=== PATIENT | female | born 1970 | race Caucasian/White ===

== ENCOUNTER 2019-10-25 08:40 | Outpatient (RCR) | payer SELFPAY | END 2019-11-03 23:59 | disposition home or self-care (01) | LOC: MPT 08:40 | PROVIDERS: Family Provider Family Medicine; PCP Family Medicine; Referring Provider Nurse Practitioner; Visit Provider Nurse Practitioner | DX: M25.552 Pain in left hip (principal) | CPT/HCPCS: 97110; 97140; 97161 ==

== ENCOUNTER 2019-10-26 11:07 | Outpatient (CLI) | payer SELFPAY ==
--- NOTE | 2019-10-26 11:58 | CT_ITS ---
WS: [id number] CT LEFT HIP WITHOUT CONTRAST. HISTORY: PAIN IN LEFT HIP Technique: All CT scans at [facility] use at least one of these dose optimization techniq ues: automated exposure control; mA and/or kV adjustment per patient size (includes targeted exams wh ere dose is matched to clinical indication); or iterative reconstruction. DLP: 757.1 mGycm COMPARISON: 10/26/2019 and MRI. No fracture or dislocation. Very minimal narrowing and sclerosis involving the LEFT hip joint. Mild c ortical irregularity involving the superior femoral head and the adjacent acetabulum. No destructive bone lesions. No soft tissue atrophy. No adjacent adenopathy. CT/CT hip LT wo con* [id number] IMPRESSION: Mild LEFT hip joint osteoarthritis.
== END 2019-10-26 11:08 | disposition home or self-care (01) ==
LOC: RADSHAW 11:13 → RADWPI 11:37
PROVIDERS: Family Provider Family Medicine; PCP Nurse Practitioner; Visit Provider Nurse Practitioner
DX: M16.12 Unilateral primary osteoarthritis, left hip (principal)
CPT/HCPCS: 73700

== ENCOUNTER 2019-11-04 06:00 | Outpatient (RCR) | payer SELFPAY | END 2019-12-04 23:59 | disposition home or self-care (01) | LOC: MPT 06:00 | PROVIDERS: PCP Nurse Practitioner; Referring Provider Nurse Practitioner; Visit Provider Nurse Practitioner | DX: M25.552 Pain in left hip (principal) | CPT/HCPCS: 97110; 97140 ==

== ENCOUNTER → 2019-11-29 13:20 | Outpatient (BNVA) | payer SELFPAY | PROVIDERS: Referring Provider Nurse Practitioner; Visit Provider Orthopaedic Surgery | DX: M25.552 Pain in left hip (principal) | CPT/HCPCS: 73502 ==

== ENCOUNTER 2019-12-15 13:06 | Outpatient (CLI) | payer SELFPAY ==
--- NOTE | 2019-12-15 13:30 | USCV_ITS ---
Paula Goodwin Age: 49 Gender: F : 1970 Exam Date: 12/15/2019 13:11 Ordering Phys: Sade Levy MD ([email or web address]) Technologist: Leyla Michaels Exam Location: [facility] [place] Indication: ICD CHF BP: / HR: 82 Rhythm: Sinus Technical Quality: Adequate MEASUREMENTS (Male / Female) Normal Values 2D ECHO LV Diastolic Diameter PLAX 4.4 cm 4.2 - 5.9 / 3.9 - 5.3 cm LV Systolic Diameter PLAX 2.9 cm IVS Diastolic Thickness 0.9 cm 0.6 - 1.0 / 0.6 - 0.9 cm IVS Systolic Thickness 1.6 cm LVPW Diastolic Thickness 1.1 cm 0.6 - 1.0 / 0.6 - 0.9 cm LVPW Systolic Thickness 1.2 cm LVOT Diameter 2.0 cm LV Ejection Fraction 2D Teich 64.1 % LA Diameter 3.0 cm LA Width 2.5 cm LA Height 4.6 cm RA Width 3.6 cm RA Height 3.7 cm Aorta at Sinotubular Diameter 3.0 cm M-MODE LV Diastolic Diameter MM 4.8 cm 4.2 - 5.9 / 3.9 - 5.3 cm LV Systolic Diameter MM 3.1 cm LV Ejection Fraction MM Teich 65.3 % IVS Diastolic Thickness MM 0.8 cm 0.6 - 1.0 / 0.6 - 0.9 cm IVS Systolic Thickness MM 1.3 cm LVPW Diastolic Thickness MM 1.1 cm 0.6 - 1.0 / 0.6 - 0.9 cm LVPW Systolic Thickness MM 1.6 cm RV Diastolic Diameter MM 0.9 cm Aortic Annulus Diameter 3.1 cm LA Ao Ratio MM 1.0 MV E Point Septal Separation 1.3 cm DOPPLER AV Peak Velocity 112.0 cm/s LVOT Peak Velocity 89.0 cm/s AV Area Cont Eq vti 2.1 cm squared AV Area Cont Eq pk 2.6 cm squared MV Area PHT 4.3 cm squared Mitral E to A Ratio 1.1 MV E' Velocity 10.0 cm/s Mitral E to MV E' Ratio 10.5 Mitral E to LV E' Lateral Ratio 10.2 Mitral E to LV E' Septal Ratio 11.0 TR Peak Velocity 225.0 cm/s TR Peak Gradient 20.2 mmHg TR Mean Velocity 174.2 cm/s TR Mean Gradient 13.0 mmHg TR Velocity Time Integral 73.3 cm PV Peak Velocity 66.0 cm/s RV Acceleration Time 0.2 s RV Ejection Time 0.4 s RV AcT/ET 0.5 FINDINGS Left Ventricle Normal left ventricular cavity size. Mildly decreased left ventricular systolic function. Left ventricular ejection fraction is estimated at 40- 45 %. Mild global hypokinesis. Abnormal septal motion consistent with conduction abnormality. Normal diastolic function. Right Ventricle Normal right ventricular size and systolic function. Right ventricular systolic pressure 23 mmHg. ICD wire visualized in right ventricle. Right Atrium Normal right atrial size. Right atrial pressure estimated at 3 mmHg. Left Atrium Normal left atrial size. Mitral Valve Structurally normal mitral valve. No mitral valve stenosis. Mild mitral valve regurgitation. Aortic Valve Aortic valve not well visualized. No aortic valve stenosis. Trace aortic valve regurgitation. Tricuspid Valve Tricuspid valve not well visualized. Trace tricuspid valve regurgitation. Pulmonic Valve Pulmonic valve not well visualized. Pericardium No pericardial effusion. Normal-sized inferior vena cava. Aorta Normal size aortic root and proximal ascending aorta. CONCLUSIONS 1. Normal left ventricular cavity size. Mildly decreased left ventricular systolic function. Left ventricular ejection fraction is estimated at 40- 45 %. Mild global hypokinesis. Normal diastolic function. 2. Normal right ventricular size and systolic function. 3. Right atrial pressure estimated at 3 mmHg. 4. Mild mitral valve regurgitation. 5. No prior similar studies to compare. Sade Levy MD (Electronically Signed) Final Date: 18 December 2019 12:18 S
== END 2019-12-15 13:07 | disposition home or self-care (01) ==
LOC: RAD 13:11
PROVIDERS: PCP Nurse Practitioner; Visit Provider Internal Medicine Cardiovascular Disease
DX: I50.9 Heart failure, unspecified (principal); I34.0 Nonrheumatic mitral (valve) insufficiency
CPT/HCPCS: 93306

== ENCOUNTER → 2019-12-29 16:12 | Outpatient (BNVA) | payer SELFPAY | PROVIDERS: PCP Nurse Practitioner; Visit Provider Internal Medicine Cardiovascular Disease | DX: Z45.02 Encounter for adjustment and management of automatic implantable cardiac defibrillator (principal); I13.0 Hypertensive heart and chronic kidney disease with heart failure and stage 1 through stage 4 chronic kidney disease, or unspecified chronic kidney disease; I50.43 Acute on chronic combined systolic (congestive) and diastolic (congestive) heart failure; N18.3 Chronic kidney disease, stage 3 (moderate); E11.22 Type 2 diabetes mellitus with diabetic chronic kidney disease; I44.7 Left bundle-branch block, unspecified | CPT/HCPCS: 80053; 83735; 83880; 84443 ==

== ENCOUNTER → 2020-03-02 13:33 | Outpatient (BNVA) | payer SELFPAY | PROVIDERS: PCP Nurse Practitioner; Referring Provider Physician Assistant Medical; Visit Provider Internal Medicine | DX: E10.40 Type 1 diabetes mellitus with diabetic neuropathy, unspecified (principal); Z79.4 Long term (current) use of insulin; E10.22 Type 1 diabetes mellitus with diabetic chronic kidney disease; N18.3 Chronic kidney disease, stage 3 (moderate); I10 Essential (primary) hypertension; E78.5 Hyperlipidemia, unspecified | CPT/HCPCS: 99204 ==

== ENCOUNTER → 2020-04-02 10:43 | Outpatient (BNVA) | payer SELFPAY | PROVIDERS: PCP Nurse Practitioner; Visit Provider Internal Medicine | DX: E10.22 Type 1 diabetes mellitus with diabetic chronic kidney disease (principal); N18.3 Chronic kidney disease, stage 3 (moderate); E10.42 Type 1 diabetes mellitus with diabetic polyneuropathy; Z79.4 Long term (current) use of insulin; E10.59 Type 1 diabetes mellitus with other circulatory complications; I10 Essential (primary) hypertension; E78.5 Hyperlipidemia, unspecified | CPT/HCPCS: 99214 ==

== ENCOUNTER → 2021-02-15 10:22 | Outpatient (BNVA) | payer MEDICAID, SELFPAY | PROVIDERS: PCP Physician Assistant Medical; Visit Provider Internal Medicine Cardiovascular Disease | DX: Z45.02 Encounter for adjustment and management of automatic implantable cardiac defibrillator (principal); R06.00 Dyspnea, unspecified; E78.5 Hyperlipidemia, unspecified; I13.0 Hypertensive heart and chronic kidney disease with heart failure and stage 1 through stage 4 chronic kidney disease, or unspecified chronic kidney disease; E10.69 Type 1 diabetes mellitus with other specified complication; I50.43 Acute on chronic combined systolic (congestive) and diastolic (congestive) heart failure; I44.7 Left bundle-branch block, unspecified; F17.210 Nicotine dependence, cigarettes, uncomplicated; N18.30 Chronic kidney disease, stage 3 unspecified | CPT/HCPCS: 80048; 82306; 83735; 83880; 84443 ==

== ENCOUNTER 2021-04-24 07:44 | Outpatient (CLI) | payer MEDICAID, SELFPAY ==
--- NOTE | 2021-04-24 08:12 | CT_ITS ---
WS: [id number] CT LUMBAR SPINE, noncontrast. HISTORY: VERTEBROGENIC LOW BACK PAIN TECHNIQUE: Contiguous 2.5 mm axial imaging are performed. Sagittal and coronal reformats are submitte d and reviewed. All CT scans at [facility] use at least one of these dose optimization techni ques: automated exposure control; mA and/or kV adjustment per patient size (includes targeted exams w here dose is matched to clinical indication); or iterative reconstruction. IV contrast: None DLP: 1940.34 mGycm COMPARISON: None available. Normal lumbar alignment. No fractures or disc space narrowing. There are small endplate hypertrophic osteophytes. L1-2: Normal. L2-3: Mild diffuse annular disc bulging with no stenosis. L3-4: Very mild annular disc bulging with no stenosis. L4-5: Mild annular disc bulging with mild ligamentum flavum and facet arthritis. Mild encroachment in to the foramina bilaterally. Mild bilateral foraminal stenosis and mild facet joint arthritis. L5-S1: Mild annular disc bulge with a very shallow central disc protrusion. Very minimal bilateral fo raminal narrowing. Mild scattered plaque within the aorta. CT/CT lumbar spine wo con* [id number] IMPRESSION: 1. No acute fractures or significant stenosis. 2. Mild bilateral foraminal stenosis at L4-5 and L5-S1 due to mild degenerativ e disc and facet arthritis.
--- NOTE | 2021-04-24 08:12 | XR_ITS ---
WS: [id number] LATERAL LUMBAR SPINE: 3 view. Lateral radiographs are performed in upright neutral, flexion and extension to the patient's toleranc e. HISTORY: Back pain. COMPARISON: None available. Mild increase in the lumbar lordosis. Posterior alignment is normal. With flexion and extension no in stability. Moderate facet joint arthritis with sclerosis and narrowing at L4-5 and L5-S1. No fractures. Mild atherosclerosis within the visualized aorta. XR/XR lumbar spine f/e only [id number] IMPRESSION: 1. No lumbar spine instability or fracture. 2. Moderate facet joint arthritis at L4-5 and L5-S1.
== END 2021-04-24 07:45 | disposition home or self-care (01) ==
PROVIDERS: PCP Physician Assistant Medical; Visit Provider Nurse Practitioner
DX: M54.41 Lumbago with sciatica, right side (principal); M47.816 Spondylosis without myelopathy or radiculopathy, lumbar region; M47.817 Spondylosis without myelopathy or radiculopathy, lumbosacral region
CPT/HCPCS: 72120; 72131

== ENCOUNTER 2021-04-29 08:30 | Outpatient (CLI) | payer MEDICAID, SELFPAY ==
[2021-04-29 08:45] VITALS: BMI 33.3
--- NOTE | 2021-04-29 08:46 | ECG_ITS ---
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 Interpretive Statements NAME OF STUDY: LEXISCAN SESTAMIBI STRESS TEST INDICATION: Shortness of Breath PROCEDURE: At the baseline, the blood pressure was 102/79 mmHg with a heart rate of 90 bpm. The electrocardiogram showed normal sinus rhythm, left axis deviation. Poor anterior R wave progression. Intraventricular conduction delay (left bundle branch block like morphology). The Lexiscan was infused over a period of 20 seconds. A total of 0.4 milligrams of Lexiscan was infused. The stress phase was continued for a total of 5 minutes. Heart rate at the end of the stress phase was 101 bpm with a blood pressure of 105/73 mmHg. The EKG at the peak infusion revealed no significant ST-T wave changes. Sestamibi was injected 20 seconds after the Lexiscan infusion. Blood pressure at the end of the recovery phase was 128/100 mmHg with a heart rate of 95 beats per minute. CONCLUSION: 1. Nondiagnostic EKG changes with the LexiScan infusion given IVCD (left bundle branch block like morphology). 2. No LexiScan induced chest pain or cardiac arrhythmia. 3. Normal blood pressure and heart rate response. 4. Sestamibi/sestamibi perfusion scan pending; see separate report. Electronically Signed On 05-02-2021 15:27:27 CDT by Sade Levy M.D. [email or web address]
--- NOTE | 2021-04-29 08:46 | NMCV_ITS ---
NM jose perf SPECT r/s* [id number] Paula Goodwin Age: 50 Gender: F : 1970 Exam Date: 04/29/2021 10:15 Ordering Phys: Sade Levy MD ([email or web address]) Technologist: KIM Horn Exam Location: [facility] Indications: SHORTNESS OF BREATH ON EXERTION STRESS TEST Please see separate stress test report in [facility] for full findings IMAGE PROTOCOL Rest/Stress 1 Lexiscan Day Radiopharmaceutical Dose (mCi) Administration Site Administered by Rest: Tc-99m 10.6 IV KIM Mathis Sestamibi Stress:Tc-99m 32.6 IV KIM Mathis Sestamibi Rest: 29-Apr-2021 60 Discovery 630 Stress: 29-Apr-2021 30 Discovery 630 0.4mg Lexiscan. Images obtained in supine and prone position. SPECT RESULTS Technical Quality: Excellent Raw Data Analysis: Normal Image Corrections: No attenuation or motion correction applied Summed Stress Score: 2 Summed Rest Score: 1 Summed Difference Score: 1 PERFUSION FINDINGS Very small size perfusion abnormality of mild severity of apical inferior and apical galvan on rest images with improved tracer uptake on prone stress images. This is suggestive of attenuation artifact. FUNCTIONAL RESULTS (calculated via Gated SPECT) Stress Image LV EF (%): 62 Stress EDV (mL):98 TID: 0.89 Stress ESV (mL):37 FUNCTIONAL FINDINGS: The left ventricle is normal in size. Transient Ischemia Dilatation of 0.89. There is normal left ventricular systolic function. The left ventricular ejection fraction is normal with a value of 62%. There is normal left ventricular wall thickening with no regional wall motion abnormality. Normal end-diastolic and end-systolic volumes. IMPRESSIONS 1. Myocardial perfusion imaging is normal. Attenuation artifact noted in apical inferior and apical galvan. 2. Overall left ventricular systolic function is normal without regional wall motion abnormalities. 3. The left ventricular ejection fraction is normal with a value of 62%. 4. Scan indicates low risk for cardiac events. Sade Levy MD (Electronically Signed) Final Date: 02 May 2021 18:06 S
[2021-04-29] MEDS: regadenoson 0.4 Mg/5 ml Syringe IVP (11:01)
[2021-04-29 11:11] VITALS: BP 116/95; PULSE 95
== END 2021-04-29 08:31 | disposition home or self-care (01) ==
LOC: CDL 08:33
PROVIDERS: Visit Provider Internal Medicine Cardiovascular Disease
DX: R06.09 Other forms of dyspnea (principal); R06.02 Shortness of breath
CPT/HCPCS: 78452; 93017; A9500; J2785

== ENCOUNTER → 2021-06-05 09:24 | Outpatient (BNVA) | payer MEDICAID, SELFPAY | PROVIDERS: PCP Nurse Practitioner Family; Visit Provider Internal Medicine | DX: E10.59 Type 1 diabetes mellitus with other circulatory complications (principal); E10.42 Type 1 diabetes mellitus with diabetic polyneuropathy; E10.22 Type 1 diabetes mellitus with diabetic chronic kidney disease; N18.30 Chronic kidney disease, stage 3 unspecified; F17.200 Nicotine dependence, unspecified, uncomplicated; Z79.4 Long term (current) use of insulin | CPT/HCPCS: 99214 ==

== ENCOUNTER → 2021-09-03 09:32 | Outpatient (BNVA) | payer MEDICAID, SELFPAY | PROVIDERS: PCP Nurse Practitioner Family; Visit Provider Internal Medicine | DX: E10.59 Type 1 diabetes mellitus with other circulatory complications (principal); E10.42 Type 1 diabetes mellitus with diabetic polyneuropathy; E10.22 Type 1 diabetes mellitus with diabetic chronic kidney disease; F17.210 Nicotine dependence, cigarettes, uncomplicated; Z79.4 Long term (current) use of insulin | CPT/HCPCS: 99214 ==

== ENCOUNTER 2021-11-03 14:28 | Inpatient (IN) | payer MEDICAID, SELFPAY ==
[2021-11-03] VITALS (18 sets, daily range): BP systolic 93–155; BP diastolic 50–80; PULSE 81–114; RESP 18–23; TEMP 37.2–39.5; O2SAT 91–97; BMI 33.6
--- NOTE | 2021-11-03 15:06 | XRR_ITS ---
PROCEDURE INFORMATION: Exam: XR Chest Exam date and time: 11/03/2021 3:19 PM Age: 50 years old Clinical indication: Fever; Additional info: Wheezing, fever TECHNIQUE: Imaging protocol: XR of the chest. Views: 1 view. COMPARISON: No relevant prior studies available. FINDINGS: Tubes, catheters and devices: Left -sided pacemaker. Lungs: Unremarkable. No consolidation. Pleural spaces: Unremarkable. No pleural effusion. No pneumothorax. Heart/Mediastinum: Unremarkable. No cardiomegaly. Bones/joints: Unremarkable. XR/XR chest 1V portable [id number] IMPRESSION: No acute findings.
--- NOTE | 2021-11-03 15:08 | ED_ITS ---
Documented by User: Britney Alonso PA-C 11/03/21 16:47 HPI - Fever General: Chief Complaint: Fever Stated Complaint: Fever, Headache Time Seen by Provider: 11/03/21 15:02 Source: patient Mode of arrival: ambulatory Limitations: no limitations History of Present Illness: 50-year-old female with a history of type 1 diabetes, CHF, and CKD, presents to the ER today for fevers and overall not feeling well x6 days. Patient reports that started last Thursday. She reports she has some low back pain/mid back pain associated with the fevers. She reports dizziness and headaches for 6 days. She reports a mild cough and some congestion which she attributed to allergies. Patient reports her blood sugars have been out of control since being ill. She is eating and drinking okay. Patient denies any pain with urination but does report increased urination which is normal for her with her diabetes. Patient denies sick contacts. Review of Systems General: Reports: 10 or more systems reviewed and unremarkable except in HPI and below PFSH ED PFSH: Medical History (Updated 11/07/21 @ 22:14 by Jeff Jasso MD) Cardiac defibrillator in place CHF (congestive heart failure), NYHA class III Diabetes Hx of cervical cancer Left bundle branch block Surgical History (Updated 11/03/21 @ 20:58 by aCyden Russell MD) H/O prior ablation treatment Hx of appendectomy Hx of breast biopsy Hx of cholecystectomy Hx of hysterectomy Family History Father Bleeding disorder CAD (coronary artery disease) Dementia Diabetes Hyperlipidemia Hypertension Lung disease Stroke Sister Cancer Grandmother Diabetes Denies family history of Clotting disorder Psychiatric illness Chronic kidney disease (CKD) Suicide Anesthesia complication Family history of premature coronary artery disease Social History Smoking and tobacco status: current every day smoker cigarettes Packs smoked per day: 1 Alcohol intake: never Physical Exam Const: COMMON NORMALS: no acute distress, patient oriented x3, no limitations, alert and well nourished HENMT: COMMON NORMALS: normocephalic, external ears normal, Normal external nose present, Normal nasal mucous membranes and turbinates present and moist oral mucous membranes HEAD & SCALP: normocephalic NOSE: Normal external nose present and Normal nasal mucous membranes and turbinates present EXTERNAL EAR: Yes external ears normal Eye: COMMON NORMALS: conjunctivae normal CONJUNCTIVA: Yes conjunctivae normal Neck/C-Spine: COMMON NORMALS: full ROM and no lymphadenopathy Resp: COMMON NORMALS: normal respiratory effort and No retractions EFFORT & INSPECTION: Yes able to speak in complete sentences AUSCULTATION: wheezes right lower Cardio: COMMON NORMALS: regular rhythm RATE: tachycardic RHYTHM: regular rhythm GI: COMMON NORMALS: Normal to inspection, nondistended, normoactive bowel sounds present, Soft to palpation and non-tender PALPATION: Yes Soft to palpation : BLADDER/KIDNEY EXAM: Yes CVA tenderness (bilateral) Back/Pelvis: GENERAL BACK: Yes CVA tenderness (bilateral) Extremity: COMMON NORMALS: normal to inspection and full ROM Neuro: COMMON NORMALS: patient oriented x3 SENSORIUM/ORIENTATION: Yes alert Psych: COMMON NORMALS: mental status grossly normal, Normal thought process present and cooperative THOUGHT PROCESS: Normal thought process present Skin: COMMON NORMALS: no rashes or lesions noted GENERAL SKIN EXAM: no rashes or lesions noted Course ED course: 50-year-old female presents to the ER today with fevers, general body aches, dizziness, headache x6 days. Patient is a type I diabetic with a history of chronic kidney disease and CHF. We will get labs and a chest x-ray at this time. We will also get a head CT given dizziness. Labs show elevated white count in addition to acute kidney injury. We will go ahead and get a CT of the abdomen and pelvis at this time. Flu and COVID are negative. Consultations: Consultation #1: I have discussed this patient with Dr. Jasso who agrees with this plan. Time: 16:18 Consultation #2: Care transferred to Dr. Jasso. Plan is to do an LP. Time: 16:47 Vital Signs: Vital signs: Vital Signs Temperature 98.2 F 11/04/21 14:21 Pulse Rate 82 11/04/21 14:21 Respiratory Rate 18 11/04/21 14:21 Blood Pressure 109/67 11/04/21 14:21 Pulse Oximetry 97 11/04/21 14:21 MDM - Fever Lab Data Labs reviewed and discussed with Dr. Jasso : 11/04/21 03:35 11/04/21 03:35 Radiology Impressions Chest X-Ray 11/03/21 15:06 IMPRESSION: No acute findings. Head CT 11/03/21 15:34 IMPRESSION: No acute intracranial abnormality. Abdomen/Pelvis CT 11/03/21 16:03 IMPRESSION: 1. 14.3 x 14.0 cm mild splenomegaly. 2. Fatty infiltration of the liver. Lumbar Spine CT 11/03/21 21:20 IMPRESSION: 1. Left paracentral posterior L5-S1 disc protrusion which creates anterior impression upon the epidural fat and thecal sac with minimal posterior displacement of the traversing left S1 nerve root. 2. Multilevel degenerative changes as discussed above. Laboratory Results WBC 14.4 10^3/uL (4.0-10.0) H 11/03/21 15:24 RBC 3.79 10^6/uL (4.1-5.3) L 11/03/21 15:24 Hgb 11.6 g/dL (11.5-15.3) 11/03/21 15:24 Hct 34.1 % (37.0-47.0) L 11/03/21 15:24 MCV 90.0 fl (81-99) 11/03/21 15:24 MCH 30.6 pg (28.0-34.0) 11/03/21 15:24 MCHC 34.0 g/dL (30.0-36.0) 11/03/21 15:24 RDW 12.3 % (12.1-15.1) 11/03/21 15:24 Plt Count 228 10^3/cmm (130-400) 11/03/21 15:24 MPV 10.9 fL (7.4-10.4) H 11/03/21 15:24 Neut % (Auto) 82.1 % 11/03/21 15:24 Lymph % (Auto) 8.7 % 11/03/21 15:24 Atkinson % (Auto) 7.3 % 11/03/21 15:24 Eos % (Auto) 0.3 % 11/03/21 15:24 Baso % (Auto) 0.3 % 11/03/21 15:24 Neut # (Auto) 11.83 10^3/uL (1.8-7.7) H 11/03/21 15:24 Lymph # (Auto) 1.3 10^3/uL (0.8-4.8) 11/03/21 15:24 Atkinson # (Auto) 1.1 10^3/uL (0.2-0.9) H 11/03/21 15:24 Eos # (Auto) 0.0 10^3/uL (0.0-0.8) 11/03/21 15:24 Baso # (Auto) 0.1 10^3/uL (0.0-0.1) 11/03/21 15:24 Nucleated RBC % (auto) 0 % 11/03/21 15:24 Nucleated RBCs # 0.0 /100WBC 11/03/21 15:24 ESR 43 mm/hr (0-15) H 11/03/21 15:24 Sodium 130 mmol/L (136-145) L 11/03/21 15:24 Potassium 4.6 mmol/L (3.5-5.1) 11/03/21 15:24 Chloride 92 mmol/L (98-107) L 11/03/21 15:24 Carbon Dioxide 25 mmol/L (22-29) 11/03/21 15:24 Anion Gap 17.6 (5-19) 11/03/21 15:24 BUN 18 mg/dL (6-20) 11/03/21 15:24 Creatinine 1.7 mg/dL (0.5-0.9) H 11/03/21 15:24 GFR Calculation 31.8 mL/min (90-130) L 11/03/21 15:24 Glucose 360 mg/dL (65-115) H 11/03/21 15:24 Calculated Osmolality 286 mOsm/kg (285-295) 11/03/21 15:24 Lactic Acid 2.6 mmol/L (0.5-2.2) H 11/03/21 15:24 Lactic Acid (Sepsis) 1.5 mmol/L (0.5-2.2) 11/03/21 16:49 Calcium 8.2 mg/dL (8.5-10.5) L 11/03/21 15:24 Total Bilirubin 0.5 mg/dL (0.15-1.2) 11/03/21 15:24 AST 17 U/L (0-32) 11/03/21 15:24 ALT 24 U/L (0-33) 11/03/21 15:24 Alkaline Phosphatase 62 IU/L (35-105) 11/03/21 15:24 Total Protein 7.1 g/dL (6.6-8.7) 11/03/21 15:24 Albumin 3.9 g/dL (3.5-5.2) 11/03/21 15:24 Globulin 3.2 g/dL (1.3-4.6) 11/03/21 15:24 Procalcitonin 0.52 ng/mL (0-0.5) H 11/03/21 15:24 Urine Color Yellow (Yellow) 11/03/21 14:55 Urine Appearance Sl hazy (CLEAR) 11/03/21 14:55 Urine pH 5 (5-7) 11/03/21 14:55 Ur Specific [place] 1.010 (1.005-1.030) 11/03/21 14:55 Urine Protein Neg (Negative) 11/03/21 14:55 Urine Glucose (UA) 4+ (Normal) H 11/03/21 14:55 Urine Ketones Negative (Negative) 11/03/21 14:55 Urine Blood Neg (Negative) 11/03/21 14:55 Urine Nitrate Negative (Negative) 11/03/21 14:55 Urine Bilirubin Neg (Negative) 11/03/21 14:55 Urine Urobilinogen Norm mg/dL (Negative) 11/03/21 14:55 Ur Leukocyte Esterase Negative (Negative) 11/03/21 14:55 Urine RBC None /hpf (0-2) 11/03/21 14:55 Urine WBC 5-10 /hpf (0-5) H 11/03/21 14:55 Ur Squamous Epith Cells 0-4 /hpf (0-5) H 11/03/21 14:55 Amorphous Sediment 1+ /hpf 11/03/21 14:55 Urine Bacteria 2+ /hpf (NONE) H 11/03/21 14:55 CSF Appearance Clear (CLEAR) 11/03/21 17:40 CSF Color Colorless (COLORLESS) 11/03/21 17:40 CSF WBC 4 /uL (0-5) 11/03/21 17:40 CSF RBC 0 10^3/uL (0-0) 11/03/21 17:40 CSF Mononuclear # Auto 0.003 10^3/uL (50-90) L 11/03/21 17:40 CSF Mononuclear WBCs % 75 % (50-90) 11/03/21 17:40 CSF Polynuclear WBCs # 0.001 10^3/uL (0-10) 11/03/21 17:40 CSF Polynuclear WBCs % 25 % (0-10) H 11/03/21 17:40 CSF Diff Comment Yes 11/03/21 17:40 CSF Glucose 156 mg/dL (40-70) H 11/03/21 17:40 CSF Total Protein 27 mg/dL (15-45) 11/03/21 17:40 Influenza Type A Ag Negative (Negative) 11/03/21 15:15 Influenza Type B Ag Negative (Negative) 11/03/21 15:15 SARS-CoV-2 Ag (Rapid) Negative (Negative) 11/03/21 15:15 Discharge Plan Discharge Patient Disposition: Admitted As Inpatient Admit Provider: Cayden Russell Clinical Impression: Sepsis Condition: Stable Sign Out Sign Out Data: Patient Sign Out occurred on 11/03/21 at 17:42. Patient's care was discussed, and care was transferred from to Jeff Jasso MD. Coding Level of Care Code ED Partition Assembly Machine Operator for Chg Fwd Exam Comprehensive Documented by User: Jeff Jasso MD 11/07/21 22:14 HPI - Fever General: Chief Complaint: Fever Stated Complaint: Fever, Headache Time Seen by Provider: 11/03/21 15:02 PFSH ED PFSH: Medical History (Updated 11/07/21 @ 22:14 by Jeff Jasso MD) Cardiac defibrillator in place CHF (congestive heart failure), NYHA class III Diabetes Hx of cervical cancer Left bundle branch block Surgical History (Updated 11/03/21 @ 20:58 by Cayden Russell MD) H/O prior ablation treatment Hx of appendectomy Hx of breast biopsy Hx of cholecystectomy Hx of hysterectomy Family History Father Bleeding disorder CAD (coronary artery disease) Dementia Diabetes Hyperlipidemia Hypertension Lung disease Stroke Sister Cancer Grandmother Diabetes Denies family history of Clotting disorder Psychiatric illness Chronic kidney disease (CKD) Suicide Anesthesia complication Family history of premature coronary artery disease Social History Smoking and tobacco status: current every day smoker cigarettes Packs smoked per day: 1 Alcohol intake: never Procedures Lumbar Puncture Time Out Performed: Yes Patient Position: upright Skin Prep: Povidone-Iodine 1% Local Anesthetic: lidocaine 1% and lidocaine 2% Amount of anesthesia used (mL): 7 Spinal Needle Gauge: 20G Interspace Used: L3-L4 Fluid Initially Obtained: clear Complications: none Additional Comments: Shortly anesthetized with 3 mL of 1% lidocaine however satisfactory local anesthesia not obtained and additional lidocaine 2% infiltrated Course ED course: 50-year-old female presents to the ER today with fevers, general body aches, dizziness, headache x6 days. Patient is a type I diabetic with a history of chronic kidney disease and CHF. We will get labs and a chest x-ray at this time. We will also get a head CT given dizziness. Labs show elevated white count in addition to acute kidney injury. We will go ahead and get a CT of the abdomen and pelvis at this time. Flu and COVID are negative. Vital Signs: Vital signs: Vital Signs Temperature 98.2 F 11/04/21 14:21 Pulse Rate 82 11/04/21 14:21 Respiratory Rate 18 11/04/21 14:21 Blood Pressure 109/67 11/04/21 14:21 Pulse Oximetry 97 11/04/21 14:21 MDM - Fever Medical Decision Making Patient discussed with BARBARA Rowley. I personally saw and evaluated the patient. I reperformed grey portions of E/M. I reviewed documentation, labs, imaging. Patient appears to have sepsis. 10 point review of systems completed. Physical exam as above, ill appearance, tachycardia, CVA tenderness No clear imaging finding or laboratory study finding to explain source of infection. Discussed with patient concern over meningitis as a possible source of infection given headache. Informed consent obtained and lumbar puncture performed without evidence of meningitis. Treated with fluids and antibiotics. Admitted for further management and culture surveillance Jeff Jasso MD Emergency Medicine Lab Data : 11/04/21 03:35 11/04/21 03:35 Radiology Impressions Chest X-Ray 11/03/21 15:06 IMPRESSION: No acute findings. Head CT 11/03/21 15:34 IMPRESSION: No acute intracranial abnormality. Abdomen/Pelvis CT 11/03/21 16:03 IMPRESSION: 1. 14.3 x 14.0 cm mild splenomegaly. 2. Fatty infiltration of the liver. Lumbar Spine CT 11/03/21 21:20 IMPRESSION: 1. Left paracentral posterior L5-S1 disc protrusion which creates anterior impression upon the epidural fat and thecal sac with minimal posterior displacement of the traversing left S1 nerve root. 2. Multilevel degenerative changes as discussed above. Laboratory Results WBC 14.4 10^3/uL (4.0-10.0) H 11/03/21 15:24 RBC 3.79 10^6/uL (4.1-5.3) L 11/03/21 15:24 Hgb 11.6 g/dL (11.5-15.3) 11/03/21 15:24 Hct 34.1 % (37.0-47.0) L 11/03/21 15:24 MCV 90.0 fl (81-99) 11/03/21 15:24 MCH 30.6 pg (28.0-34.0) 11/03/21 15:24 MCHC 34.0 g/dL (30.0-36.0) 11/03/21 15:24 RDW 12.3 % (12.1-15.1) 11/03/21 15:24 Plt Count 228 10^3/cmm (130-400) 11/03/21 15:24 MPV 10.9 fL (7.4-10.4) H 11/03/21 15:24 Neut % (Auto) 82.1 % 11/03/21 15:24 Lymph % (Auto) 8.7 % 11/03/21 15:24 Atkinson % (Auto) 7.3 % 11/03/21 15:24 Eos % (Auto) 0.3 % 11/03/21 15:24 Baso % (Auto) 0.3 % 11/03/21 15:24 Neut # (Auto) 11.83 10^3/uL (1.8-7.7) H 11/03/21 15:24 Lymph # (Auto) 1.3 10^3/uL (0.8-4.8) 11/03/21 15:24 Atkinson # (Auto) 1.1 10^3/uL (0.2-0.9) H 11/03/21 15:24 Eos # (Auto) 0.0 10^3/uL (0.0-0.8) 11/03/21 15:24 Baso # (Auto) 0.1 10^3/uL (0.0-0.1) 11/03/21 15:24 Nucleated RBC % (auto) 0 % 11/03/21 15:24 Nucleated RBCs # 0.0 /100WBC 11/03/21 15:24 ESR 43 mm/hr (0-15) H 11/03/21 15:24 Sodium 130 mmol/L (136-145) L 11/03/21 15:24 Potassium 4.6 mmol/L (3.5-5.1) 11/03/21 15:24 Chloride 92 mmol/L (98-107) L 11/03/21 15:24 Carbon Dioxide 25 mmol/L (22-29) 11/03/21 15:24 Anion Gap 17.6 (5-19) 11/03/21 15:24 BUN 18 mg/dL (6-20) 11/03/21 15:24 Creatinine 1.7 mg/dL (0.5-0.9) H 11/03/21 15:24 GFR Calculation 31.8 mL/min (90-130) L 11/03/21 15:24 Glucose 360 mg/dL (65-115) H 11/03/21 15:24 Calculated Osmolality 286 mOsm/kg (285-295) 11/03/21 15:24 Lactic Acid 2.6 mmol/L (0.5-2.2) H 11/03/21 15:24 Lactic Acid (Sepsis) 1.5 mmol/L (0.5-2.2) 11/03/21 16:49 Calcium 8.2 mg/dL (8.5-10.5) L 11/03/21 15:24 Total Bilirubin 0.5 mg/dL (0.15-1.2) 11/03/21 15:24 AST 17 U/L (0-32) 11/03/21 15:24 ALT 24 U/L (0-33) 11/03/21 15:24 Alkaline Phosphatase 62 IU/L (35-105) 11/03/21 15:24 Total Protein 7.1 g/dL (6.6-8.7) 11/03/21 15:24 Albumin 3.9 g/dL (3.5-5.2) 11/03/21 15:24 Globulin 3.2 g/dL (1.3-4.6) 11/03/21 15:24 Procalcitonin 0.52 ng/mL (0-0.5) H 11/03/21 15:24 Urine Color Yellow (Yellow) 11/03/21 14:55 Urine Appearance Sl hazy (CLEAR) 11/03/21 14:55 Urine pH 5 (5-7) 11/03/21 14:55 Ur Specific [place] 1.010 (1.005-1.030) 11/03/21 14:55 Urine Protein Neg (Negative) 11/03/21 14:55 Urine Glucose (UA) 4+ (Normal) H 11/03/21 14:55 Urine Ketones Negative (Negative) 11/03/21 14:55 Urine Blood Neg (Negative) 11/03/21 14:55 Urine Nitrate Negative (Negative) 11/03/21 14:55 Urine Bilirubin Neg (Negative) 11/03/21 14:55 Urine Urobilinogen Norm mg/dL (Negative) 11/03/21 14:55 Ur Leukocyte Esterase Negative (Negative) 11/03/21 14:55 Urine RBC None /hpf (0-2) 11/03/21 14:55 Urine WBC 5-10 /hpf (0-5) H 11/03/21 14:55 Ur Squamous Epith Cells 0-4 /hpf (0-5) H 11/03/21 14:55 Amorphous Sediment 1+ /hpf 11/03/21 14:55 Urine Bacteria 2+ /hpf (NONE) H 11/03/21 14:55 CSF Appearance Clear (CLEAR) 11/03/21 17:40 CSF Color Colorless (COLORLESS) 11/03/21 17:40 CSF WBC 4 /uL (0-5) 11/03/21 17:40 CSF RBC 0 10^3/uL (0-0) 11/03/21 17:40 CSF Mononuclear # Auto 0.003 10^3/uL (50-90) L 11/03/21 17:40 CSF Mononuclear WBCs % 75 % (50-90) 11/03/21 17:40 CSF Polynuclear WBCs # 0.001 10^3/uL (0-10) 11/03/21 17:40 CSF Polynuclear WBCs % 25 % (0-10) H 11/03/21 17:40 CSF Diff Comment Yes 11/03/21 17:40 CSF Glucose 156 mg/dL (40-70) H 11/03/21 17:40 CSF Total Protein 27 mg/dL (15-45) 11/03/21 17:40 Influenza Type A Ag Negative (Negative) 11/03/21 15:15 Influenza Type B Ag Negative (Negative) 11/03/21 15:15 SARS-CoV-2 Ag (Rapid) Negative (Negative) 11/03/21 15:15 Critical Care Time Critical Care Time: Critical Care Time: Yes Total Critical Care Time: 40 Attestation: Due to a high probability of clinically significant, possibly life threatening deterioration, the patient required my highest level of attention and preparedness to intervene emergently and I personally spent this critical care time directly and personally managing the patient. This critical care time included obtaining a history; examining the patient; pulse oximetry; ordering and review of laboratory and imaging studies; arranging urgent treatment with development of a management plan; evaluation of patient's response to treatment; frequent reassessment; and, discussions with other providers as applicable. It was exclusive of separately billable procedures. Primary system involved is immune/cardiovascular Discharge Plan Discharge Patient Disposition: Admitted As Inpatient Admit Provider: Cayden Russell Clinical Impression: Sepsis Condition: Stable Sign Out Sign Out Data: Patient Sign Out occurred on 11/03/21 at 17:42. Patient's care was discussed, and care was transferred from to Jeff Jasso MD. Coding Level of Care Code ED Partition Assembly Machine Operator for Chg Fwd Exam Comprehensive
[2021-11-03] MEDS: acetaminophen 500 mg Tablet 1000 MG PO (15:13)
[2021-11-03 15:14] LABS: Add Urine Microscopic? YES; Bilirubin Urine Neg (Negative); Blood Urine Neg (Negative); Glucose Urine UA 4+ (Normal); Ketones Urine Negative (Negative); Leukocyte Esterase Urine Negative (Negative); Nitrate Urine Negative (Negative); Protein Urine Neg (Negative); Urine Appearance SL Hazy (CLEAR); Urine Color Yellow (Yellow); Urobilinogen Urine Norm (Negative); pH Urine 5 (5-7)
[2021-11-03 15:15] LABS: Squamous Epithelial Cell Urine 0-4 /hpf (0-5)
[2021-11-03 15:16] LABS: Amorphous Sediment Urine 1+ /hpf
[2021-11-03 15:17] LABS: Add Urine Culture? Yes; Bacteria Urine 2+ /hpf
[2021-11-03 15:32] LABS: Basophils # 0.1 10^3/uL (0.0-0.1); Basophils % 0.3 %; Eosinophils % 0.3 %; Hematocrit 34.1 % (37.0-47.0); Hemoglobin 11.6 g/dL (11.5-15.3); Lymphocytes # 1.3 10^3/uL (0.8-4.8); Lymphocytes % 8.7 %; Mean Corpuscular Hemoglobin 30.6 pg (28.0-34.0); Mean Platelet Volume 10.9 fL (7.4-10.4); Monocytes # 1.1 10^3/uL (0.2-0.9); Monocytes % 7.3 %; Neutrophils # 11.83 10^3/uL (1.8-7.7); Neutrophils % 82.1 %; Nucleated Red Blood Cells % 0 %; Platelet Count 228 10^3/cmm (130-400); Red Blood Count 3.79 10^6/uL (4.1-5.3); Red Cell Distribution Width 12.3 % (12.1-15.1); White Blood Count 14.4 10^3/uL (4.0-10.0)
--- NOTE | 2021-11-03 15:34 | CTR_ITS ---
PROCEDURE INFORMATION: Exam: CT Head Without Contrast Exam date and time: 11/03/2021 4:03 PM Age: 50 years old Clinical indication: Pain; Dizziness; Headache; Additional info: Dizziness, headaches TECHNIQUE: Imaging protocol: Computed tomography of the head without contrast. Radiation optimization: All CT scans at this facility use at least one of these dose optimization techniques: automated exposure control; mA and/or kV adjustment per patient size (includes targeted exams where dose is matched to clinical indication); or iterative reconstruction. COMPARISON: No relevant prior studies available. RADIATION DOSE METRICS: Total DLP (mGy-cm): 894.34 FINDINGS: Brain: Normal. No hemorrhage. Unremarkable white matter. No mass effect. Cerebral ventricles: No ventriculomegaly. Paranasal sinuses: Visualized sinuses are unremarkable. No fluid levels. Mastoid air cells: Visualized mastoid air cells are well aerated. Bones/joints: Unremarkable. No acute fracture. Soft tissues: Unremarkable. CT/CT head wo con* [id number] IMPRESSION: No acute intracranial abnormality.
[2021-11-03 15:49] LABS: Alanine Aminotransferase 24 U/L (0-33); Albumin Level 3.9 g/dL (3.5-5.2); Alkaline Phosphatase 62 IU/L (35-105); Anion Gap 17.6 (5-19); Aspartate Amino Transferase 17 U/L (0-32); Blood Urea Nitrogen 18 mg/dL (6-20); Calcium 8.2 mg/dL (8.5-10.5); Carbon Dioxide 25 mmol/L (22-29); Chloride 92 mmol/L (98-107); Globulin 3.2 g/dL (1.3-4.6); Glomerular Filtration Rate 31.8 mL/min (90-130); Glucose 360 mg/dL (65-115); Osmolality Calculated 286 mOsm/kg (285-295); Potassium 4.6 mmol/L (3.5-5.1); Sodium 130 mmol/L (136-145); Total Bilirubin 0.5 mg/dL (0.15-1.2); Total Protein 7.1 g/dL (6.6-8.7)
[2021-11-03 15:50] LABS: Lactic Sepsis W/Reflex 2.6 mmol/L (0.5-2.2)
[2021-11-03] MEDS: sodium chloride 0.9% 1,000 ML 999 ML IV (15:54)
[2021-11-03 16:00] LABS: Reflex Lactate Order REFLEX LACTIC ORDERD
--- NOTE | 2021-11-03 16:03 | CTR_ITS ---
PROCEDURE INFORMATION: Exam: CT Abdomen And Pelvis Without Contrast Exam date and time: 11/03/2021 4:08 PM Age: 50 years old Clinical indication: Fever and nausea; Prior surgery; Surgery type: Appy, gb, hysto; Additional info: CVA tenderness, febrile TECHNIQUE: Imaging protocol: Computed tomography of the abdomen and pelvis without contrast. Radiation optimization: All CT scans at this facility use at least one of these dose optimization techniques: automated exposure control; mA and/or kV adjustment per patient size (includes targeted exams where dose is matched to clinical indication); or iterative reconstruction. COMPARISON: CR XR hip LT 2-3V wo/w pel* [id number] 11/29/2019 1:24 PM RADIATION DOSE METRICS: Total DLP (mGy-cm): 1333.81 FINDINGS: Liver: Fatty infiltration of the liver. Gallbladder and bile ducts: Surgical clips in the gallbladder fossa consistent with cholecystectomy. Pancreas: Normal. No ductal dilation. Spleen: 14.3 x 14.0 cm mild splenomegaly. One or more accessory splenules. Adrenal glands: Normal. No mass. Kidneys and ureters: Normal. No hydronephrosis. Stomach and bowel: Unremarkable. No obstruction. No mucosal thickening. Appendix: No evidence of appendicitis. Intraperitoneal space: Unremarkable. No free air. No significant fluid collection. Vasculature: Calcification of the abdominal aorta and/or iliac arteries consistent with atherosclerotic vessel disease. One or more calcified pelvic phleboliths. Lymph nodes: Unremarkable. No enlarged lymph nodes. Urinary bladder: Unremarkable as visualized. Reproductive: Status post hysterectomy. Bones/joints: Dextroscoliosis. Soft tissues: Unremarkable. CT/CT abdomen pelvis wo con [id number] IMPRESSION: 1. 14.3 x 14.0 cm mild splenomegaly. 2. Fatty infiltration of the liver.
[2021-11-03 16:04] LABS: Influenza A by IFA Negative (Negative); Influenza B by IFA Negative (Negative); SARS Covid-2 Antigen Negative (Negative)
[2021-11-03 17:08] LABS: Lactic Acid level (Lactate) 1.5 mmol/L (0.5-2.2)
[2021-11-03] MEDS: morphine 4 mg/mL SDV 1 mL IVP (17:45)
[2021-11-03] MEDS: lidocaine 2% INJ 20 mL INJECTION (17:49)
[2021-11-03 18:01] LABS: CSF Mononuclear # 0.003 10^3/uL (50-90); Mononuclear WBC CSF % 75 % (50-90); Polynuclear Cells ,CSF # 0.001 10^3/uL (0-10); Polynuclear WBC CSF % 25 % (0-10); Red Blood Cell CSF 0 10^3/uL (0-0); White Blood Cell CSF 4 /uL (0-5)
[2021-11-03 18:02] LABS: Appearance CSF CLEAR (CLEAR); Pathology Referral Yes
[2021-11-03 18:18] LABS: Color CSF COLORLESS (COLORLESS)
[2021-11-03 18:21] LABS: Glucose CSF 156 mg/dL (40-70); Total Protein CSF 27 mg/dL (15-45)
--- NOTE | 2021-11-03 20:13 | PM.HP ---
Providers/Chief Complaint Admitting Physician: Cayden Russell MD Primary Care Provider: VIDHYA Cheema Chief Complaint: Fever, Headache, kidneys hurting History of Present Illness Paula Goodwin is a 50 year old female who has significant past medical history presented to the hospital with chief complaint of fever, headache and back pain. Patient is stating that her symptoms started on Thursday with a headache associated with fever and back pain. Her first symptom was headache which she is describing as throbbing in nature starting from her forehead radiating towards her occiput, she has not experienced any nausea, vomiting or neck stiffness. No strokelike features. She is diabetic and endorsing blurry vision during febrile episodes. Coughing and straining makes her headache worse. When she checked her temperature it was 102, it was associated with rigors/chills. She is denying abdominal pain, diarrhea, constipation, dysuria however endorsing bilateral flank pain. She initially thought she probably suffered from pyelonephritis. Because of worsening of her symptoms she decided to come to the hospital for further evaluation. The ER diagnostic work-up revealed sepsis, fever 102, she is dehydrated, hyponatremia, CAL[place], lactic acid 2.6, urine analysis unremarkable, COVID antigen negative, CSF panel unremarkable, mild splenomegaly, patient is endorsing smoker's cough, head CT unremarkable, no acute finding on x-ray of chest CT abdomen pelvis did not show pyelonephritis or kidney stone 14 x 14 cm mild splenomegaly Patient does not have a gallbladder She does not have typical meningitis signs during my evaluation in the ER Blood cultures have been requested, will add vancomycin and Zosyn for her sepsis Review of Systems Const: Reports: fever(s), chills, body aches and fatigue Eyes: Reports: change in vision and blurry vision ENMT: Denies: throat pain Card: Denies: chest pain Resp: Reports: productive cough; Denies: dyspnea GI: Denies: abdominal pain : Denies: flank pain Musc: Reports: back pain; Denies: neck pain Skin/Breast: Denies: rash Neuro: Reports: headache(s); Denies: numbness in extremities, weakness in extremities, sensory changes, lack of coordination or difficulty walking Psych: Reports: anxiety Endo: Denies: polyuria Praful/Lymph: Denies: easy bruising All/Imm: Denies: urticaria Medications/Allergies Home Medications Medication Instructions Recorded Confirmed Last Taken Type hydroxyzine HCl 25 mg tablet 25 mg PO DAILY tab 11/14/19 11/03/21 11/03/21 History lovastatin 20 mg tablet 20 mg PO DAILY 11/14/19 11/03/21 11/02/21 History blood sugar diagnostic (Accu-Chek #360 each 03/02/20 11/03/21 Unknown Rx Linette Plus test strp) blood-glucose meter (Accu-Chek #1 each 03/02/20 11/03/21 Unknown Rx Linette Plus Meter) trazodone 150 mg tablet 150 mg PO BEDTIME tab 03/02/20 11/03/21 11/02/21 History blood-glucose meter,continuous #1 ea 03/06/21 11/03/21 Unknown Rx (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) pen needle, diabetic 31 gauge x #100 ea 03/12/21 11/03/21 Unknown Rx 1/4 (Comfort EZ Pen Perry) gabapentin 300 mg capsule 600 mg PO TID cap 05/16/21 11/03/21 11/03/21 History morphine 15 mg immediate release 15 mg PO Q6H PRN 05/16/21 11/03/21 Unknown History tablet pantoprazole 20 mg tablet,delayed See Rx Instructions .ROUTE 06/17/21 11/03/21 11/03/21 Rx release .COMPLEX #30 tab blood-glucose sensor (Dexcom G6 #3 ea 07/04/21 11/03/21 Unknown Rx Sensor) blood-glucose transmitter (Dexcom #1 ea 07/04/21 11/03/21 Unknown Rx G6 Transmitter) subcutaneous insulin pump (Omnipod #1 ea 09/04/21 11/03/21 Unknown Rx Insulin Management) furosemide 20 mg tablet 20 mg PO DAILY PRN #90 tab 10/21/21 11/03/21 11/03/21 Rx ergocalciferol (vitamin D2) 1,250 See Rx Instructions .ROUTE .COMPLEX 11/03/21 11/03/21 10/31/21 History mcg (50,000 unit) capsule (Vitamin D2) insulin aspart U-100 100 unit/mL 20 unit SUBCUT TID 11/03/21 11/03/21 11/03/21 History (3 mL) subcutaneous pen (Novolog Flexpen U-100 Insulin aspart) insulin glargine 100 unit/mL (3 40 unit SUBCUT BID 11/03/21 11/03/21 11/03/21 History mL) subcutaneous pen (Lantus Solostar U-100 Insulin) meloxicam 15 mg tablet 15 mg PO DAILY 11/03/21 11/03/21 11/03/21 History Allergies Allergy/AdvReac Type Severity Reaction Status Date / Time No Known Allergies Allergy Verified 09/03/21 09:40 PFSH Acute PFSH: Medical History (Updated 11/03/21 @ 20:58 by Cayden Russell MD) Cardiac defibrillator in place CHF (congestive heart failure), NYHA class III Diabetes Hx of cervical cancer Left bundle branch block Surgical History (Updated 11/03/21 @ 20:58 by Cayden Russell MD) H/O prior ablation treatment Hx of appendectomy Hx of breast biopsy Hx of cholecystectomy Hx of hysterectomy Family History Father Bleeding disorder CAD (coronary artery disease) Dementia Diabetes Hyperlipidemia Hypertension Lung disease Stroke Sister Cancer Grandmother Diabetes Denies family history of Clotting disorder Psychiatric illness Chronic kidney disease (CKD) Suicide Anesthesia complication Family history of premature coronary artery disease Social History Smoking and tobacco status: current every day smoker cigarettes Packs smoked per day: 1 Alcohol intake: never Vitals/I&O/Wt Last Vital Signs Temp 99.0 F 11/03/21 18:00 Pulse 81 11/03/21 18:00 Resp 18 11/03/21 18:00 BP 114/67 11/03/21 18:00 Pulse Ox 96 11/03/21 18:00 Weight last 48 hrs Weight 97.522 kg Physical Exam Narrative: NIH 0 Pleasant cooperative female Sitting in her bed No active nausea vomiting Looks well-hydrated Morbidly obese No signs of meningitis Nonfocal neuro exam No neck stiffness Abdomen soft S1, S2 No signs of heart failure Bilateral breath sound without adventitious rhonchi or crackles Saturating well on room air No joint pain or swelling CVA tenderness positive bilaterally left greater than right Data : 11/03/21 15:24 11/03/21 15:24 Micro: Microbiology 11/03/21 18:45 Blood Culture - Preliminary Blood SPECIMEN COLLECTED 11/03/21 18:45 Blood Culture - Preliminary Blood SPECIMEN COLLECTED A&P Assessment and plan (1) Sepsis: Status: Acute (2) Diabetic neuropathy associated with type 1 diabetes mellitus: Status: Acute Qualifiers: Diabetes mellitus complication detail: diabetic polyneuropathy Qualified Code(s): E10.42 - Type 1 diabetes mellitus with diabetic polyneuropathy (3) CKD stage 3 secondary to diabetes: Status: Acute (4) Long-term insulin use: Status: Acute (5) Smoker: Status: Acute (6) Febrile: Status: Acute Plan Sepsis Source is unknown CSF is unremarkable, so far she is not meeting criteria for meningitis or enterocolitis, however because of sepsis criteria I will start her on vancomycin and Zosyn, started on IV fluids Considering her headache, blurry vision with fever would like to rule out cerebral venous thrombosis, will request MRI without contrast, she is not an ideal candidate for contrasted MRI because of chronic kidney disease, check echo, procalcitonin, urine culture blood culture requested repeat lactic acid in the morning Overnight I will do CT scan of lumbar region without contrast, she does have CVA tenderness on physical exam NIH 0 Her liver enzymes are normal, I do not suspect rickettsial disease, no skin rash, I would hold off on adding doxycycline for now Temporal arteritis would also stay in my differentials, check ESR pseudoHyponatremia Previous sodium level seems to be normal She is an active smoker Continue IV fluids monitor sodium for now Corrected sodium to glucose 134-136 mEq Acute on chronic kidney disease She does have history of chronic kidney disease stage III Creatinine worsened 1.7 Continue with fluids CHF without acute exacerbation Hold diuretics as she is getting IV fluids monitor for fluid overload, she was not giving septic bolus in the ER because of CHF history Lactic acid has improved Full code Cardiac consistent carb diet Continue insulin for insulin-dependent diabetes Check A1c level DVT prophylaxis on board Hold gabapentin for worsening of creatinine Continue scheduled insulin along with Lantus Attestations Medical Necessity Statement*: For her sepsis, source is unknown she will need more than 2 midnight stay in the hospital Time Spent in Patient Care: 40mins Coding Level of Care Code Acute 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
[2021-11-03 21:17] LABS: Procalcitonin 0.52 ng/mL (0-0.5)
--- NOTE | 2021-11-03 21:20 | CTR_ITS ---
PROCEDURE INFORMATION: Exam: CT Lumbar Spine Without Contrast Exam date and time: 11/03/2021 9:58 PM Age: 50 years old Clinical indication: Low back pain and other: Paraspinal tenderness; Additional info: Para spinal tenderness TECHNIQUE: Imaging protocol: Computed tomography images of the lumbar spine without contrast. Radiation optimization: All CT scans at this facility use at least one of these dose optimization techniques: automated exposure control; mA and/or kV adjustment per patient size (includes targeted exams where dose is matched to clinical indication); or iterative reconstruction. COMPARISON: CT lumbar spine wo con* [id number] 04/24/2021 8:20 AM RADIATION DOSE METRICS: Total DLP (mGy-cm): 2218.63 FINDINGS: Vertebrae: No acute fracture. Normal alignment. L1-L2: No significant disc protrusion. No severe spinal canal stenosis. No significant neural foraminal narrowing. L2-L3: No significant disc protrusion. No severe spinal canal stenosis. No significant neural foraminal narrowing. L3-L4: Mild degenerative disc disease and spondylosis. L4-L5: Mild degenerative disc disease and spondylosis. L5-S1: Left paracentral posterior L5-S1 disc protrusion which creates anterior impression upon the epidural fat and thecal sac with minimal posterior displacement of the traversing left S1 nerve root. Gallbladder and bile ducts: Surgical clips in the gallbladder fossa consistent with cholecystectomy. Vasculature: Calcification of the abdominal aorta and/or iliac arteries consistent with atherosclerotic vessel disease. Soft tissues: Unremarkable. CT/CT lumbar spine wo con* [id number] IMPRESSION: 1. Left paracentral posterior L5-S1 disc protrusion which creates anterior impression upon the epidural fat and thecal sac with minimal posterior displacement of the traversing left S1 nerve root. 2. Multilevel degenerative changes as discussed above.
[2021-11-03] MEDS: pantoprazole DR 40 mg Tablet PO (21:48)
[2021-11-03] MEDS: heparin 5,000 unit/mL INJ 1 mL 5000 UNIT SUBCUT (21:48)
[2021-11-03] MEDS: acetaminophen 500 mg Tablet PO (21:48)
[2021-11-03] MEDS: trazodone 150 mg Tablet PO (21:48)
[2021-11-03 21:52] LABS: Erythrocyte Sedimentation Rate 43 mm/hr (0-15)
--- NOTE | 2021-11-03 21:53 | PC.PHAR ---
Vancomycin is dosed at 1500mg IVPB every 24 hours to produce a predicted trough level of 16.21 (population based pharmacokinetic analysis). A trough level has been ordered from the lab to be obtained before the fourth dose to confirm and adjust if needed.
[2021-11-03] MEDS: sodium chloride 0.9% 1,000 ML 75 ML IV (22:03)
[2021-11-03] MEDS: piperacillin-tazobactam 3.375 GM in sodium chloride 0.9% (plus) 50 ML IV (22:03)
[2021-11-03] MEDS: insulin lispro 100 unit/1 mL 10 UNIT SUBCUT (22:45)
--- NOTE | 2021-11-04 00:04 | USCV_ITS ---
Paula Goodwin Age: 50 Gender: F : 1970 Exam Date: 11/04/2021 00:52 Ordering Phys: Cayden Russell MD Technologist: Jeremy Miranda [place] [facility] [place]: Vegetation? fever of unknown origin BP: 120 / 72 HR: 89 Rhythm: Sinus Technical Quality: Poor MEASUREMENTS (Male / Female) Normal Values 2D ECHO LV Diastolic Diameter PLAX 2.5 cm 4.2 - 5.9 / 3.9 - 5.3 cm LV Systolic Diameter PLAX 1.8 cm IVS Diastolic Thickness 2.2 cm 0.6 - 1.0 / 0.6 - 0.9 cm IVS Systolic Thickness 1.9 cm LVPW Diastolic Thickness 2.1 cm 0.6 - 1.0 / 0.6 - 0.9 cm LVPW Systolic Thickness 2.5 cm LVOT Diameter 2.0 cm LV Ejection Fraction 2D Teich 48.9 % LV Ejection Fraction MOD 2C 55.0 % LV Ejection Fraction 2C AL 53.9 % LA Diameter 3.1 cm LA Width 4.5 cm LA Height 4.9 cm Aorta at Sinotubular Diameter 2.2 cm M-MODE Aortic Annulus Diameter 2.6 cm LA Ao Ratio MM 1.1 MV E Point Septal Separation 1.5 cm DOPPLER Right Atrial Pressure 3.0 mmHg FINDINGS Left Ventricle This study is a limited 2D study only. Only the parasternal long axis and apical four-chamber views are available. No Doppler examination was done. The study is of limited quality. The ventricle is probably normal in size and function. The estimated ejection fraction is 55%. Diastolic G was not evaluated. Right Ventricle Normal right ventricular size and systolic function. Right Atrium Right atrium not well visualized. Left Atrium Left atrium not well visualized. Mitral Valve Structurally normal mitral valve. Aortic Valve Aortic valve not well visualized. Structurally normal trileaflet aortic valve. Tricuspid Valve Structurally normal tricuspid valve. Pulmonic Valve Pulmonic valve not well visualized. Pericardium No pericardial effusion. Aorta Aorta not well visualized. CONCLUSIONS This study is a limited 2D study only. Only the parasternal long axis and apical four-chamber views are available. No Doppler examination was done. The study is of limited quality. The ventricle is probably normal in size and function. The estimated ejection fraction is 55%. Diastolic G was not evaluated. There is no obvious evidence of a vegetation however this study is not powered to adequately rule out endocarditis. If there are symptoms and laboratory and/or physical examination signs consistent with endocarditis, then a transesophageal echo should be considered. Dr. Luis Carlos London MD (Electronically Signed) Final Date: 04 Nov 2021 09:48 S
[2021-11-04] MEDS: vancomycin 1,500 MG/300 ML PIGGYBACK 150 MG IV (01:17)
[2021-11-04 01:43] VITALS: PULSE 90
[2021-11-04 02:53] VITALS: BP 149/71; PULSE 102; RESP 16; TEMP 38; O2SAT 96
[2021-11-04] MEDS: acetaminophen 500 mg Tablet PO ×3 (02:54→11:45)
[2021-11-04] MEDS: ondansetron 2 mg/ML SDV 2 mL 4 MG IVP (04:08)
[2021-11-04 04:49] LABS: Basophils % 0.3 %; Eosinophils % 0.2 %; Hematocrit 32.3 % (37.0-47.0); Hemoglobin 10.5 g/dL (11.5-15.3); Lymphocytes # 1.8 10^3/uL (0.8-4.8); Lymphocytes % 13.4 %; Mean Corpuscular HGB Conc 32.5 g/dL (30.0-36.0); Mean Corpuscular Hemoglobin 30.3 pg (28.0-34.0); Mean Corpuscular Volume 93.1 fl (81-99); Mean Platelet Volume 11.3 fL (7.4-10.4); Monocytes # 0.9 10^3/uL (0.2-0.9); Monocytes % 6.2 %; Neutrophils # 10.79 10^3/uL (1.8-7.7); Neutrophils % 78.7 %; Nucleated Red Blood Cells % 0 %; Platelet Count 228 10^3/cmm (130-400); Red Blood Count 3.47 10^6/uL (4.1-5.3); Red Cell Distribution Width 12.4 % (12.1-15.1); White Blood Count 13.7 10^3/uL (4.0-10.0)
[2021-11-04 05:05] LABS: Lactate (Lactic Acid level) 2.2 mmol/L (0.5-2.2)
[2021-11-04 05:08] LABS: Alanine Aminotransferase 22 U/L (0-33); Albumin Level 3.6 g/dL (3.5-5.2); Alkaline Phosphatase 62 IU/L (35-105); Anion Gap 18.4 (5-19); Aspartate Amino Transferase 15 U/L (0-32); Blood Urea Nitrogen 17 mg/dL (6-20); C Reactive Protein 300.1 mg/L (0.0-4.9); Calcium 8.2 mg/dL (8.5-10.5); Carbon Dioxide 25 mmol/L (22-29); Chloride 95 mmol/L (98-107); Globulin 3.1 g/dL (1.3-4.6); Glomerular Filtration Rate 31.8 mL/min (90-130); Glucose 289 mg/dL (65-115); Osmolality Calculated 290 mOsm/kg (285-295); Potassium 4.4 mmol/L (3.5-5.1); Sodium 134 mmol/L (136-145); Total Bilirubin 0.6 mg/dL (0.15-1.2); Total Protein 6.7 g/dL (6.6-8.7)
[2021-11-04] MEDS: piperacillin-tazobactam 3.375 GM in sodium chloride 0.9% (plus) 50 ML IV (05:15)
[2021-11-04 06:05] VITALS: PULSE 100
[2021-11-04 06:29] LABS: Glucose Point of Care 324 mg/dL (70-110)
[2021-11-04 07:15] VITALS: BP 109/68; PULSE 89; RESP 18; TEMP 36.8; O2SAT 92
[2021-11-04] MEDS: insulin glargine 100 units/1 mL 40 UNIT SUBCUT (08:46)
[2021-11-04] MEDS: insulin lispro 100 unit/1 mL 10 UNIT SUBCUT (08:46)
[2021-11-04] MEDS: insulin lispro 100 unit/1 mL SUBCUT ×2 (08:46→12:12)
[2021-11-04] MEDS: pantoprazole DR 40 mg Tablet PO (08:47)
[2021-11-04] MEDS: heparin 5,000 unit/mL INJ 1 mL 5000 UNIT SUBCUT (08:50)
--- NOTE | 2021-11-04 10:01 | PM.PN ---
Subjective Subjective: She still complains of a headache and is keen to have a nicotine patch. She has a wet cough on entering the room. Medications: Reviewed: Yes Vitals/I&O/Wt Last Vital Signs Temp 98.3 F 11/04/21 07:15 Pulse 89 11/04/21 07:15 Resp 18 11/04/21 07:15 BP 109/68 11/04/21 07:15 Pulse Ox 92 11/04/21 07:15 11/03/21 11/04/21 11/04/21 22:59 06:59 14:59 Intake Total 1000 / 1000 350 / 1350 250 / 250 Output Total 500 / 500 1800 / 2300 800 / 800 Balance 500 / 500 -1450 / -950 -550 / -550 Weight last 48 hrs Weight 215 lb Physical Exam Narrative: On examination she appear no distress. Vital signs as documented. Skin warm and dry and without overt rashes. Neck without JVD. Lungs clear. Heart exam notable for regular rhythm, normal sounds and absence of murmurs, rubs or gallops. Abdomen unremarkable and without evidence of organomegaly, masses, or abdominal aortic enlargement. Her lungs are coarse and there is decreased breath sounds in the left lower lobe. Data : 11/04/21 03:35 11/04/21 03:35 Micro: Microbiology 11/03/21 14:55 Urine Culture - Preliminary Urine,Clean Catch Gram Negative Rods 11/03/21 17:40 Gram Stain - Final Cerebrospinal Fluid 11/03/21 18:45 Blood Culture - Preliminary Blood SPECIMEN COLLECTED 11/03/21 18:45 Blood Culture - Preliminary Blood SPECIMEN COLLECTED A&P Assessment and plan (1) Sepsis: I am suspicious that she has a an occult pneumonia that was not seen on initial evaluation due to dehydration. She is on appropriate antibiosis for this as well as IV fluids for her dehydration. We will continue her antibiosis and IV fluids. A repeat chest x-ray would only be academic, at this point. Status: Acute (2) CKD stage 3 secondary to diabetes: We will continue to monitor and give her IV fluids. Status: Acute Attestations Medical Necessity Statement*: She needs to be here for at least another midnight due to her likely community-acquired pneumonia with septic . 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
[2021-11-04] MEDS: nicotine 21 mg Patch 1 PATCH TRANSDERMA (10:17)
--- NOTE | 2021-11-04 10:45 | PC.CHAP ---
Pastoral Care Encounter/Spiritual Assessment Type of Contact [] Declined vaccine key customer leader visit [] Patient/Family/Request visit [] Outpatient visit [] Follow-up visit [] Physician referral [] Code/Alert [x] Routine visit [] Staff referral [] Actively dying [] Patient sleeping [] Family support [] [] Out of room [] Palliative care [] [x] Receiving care in room [] Pre-surgical visit [] Trauma [] Long length of stay [] ICU visit [] Other: Relational/Emotional Strength [] Patient feels connected with others/family/visitors/staff [] Distress [] Loneliness/isolation [] Abandonment Spirituality of Patient [] Person of Viv [] Attends Advent of their Viv [] Believes in Prayer [] Reads Bible or Quaker materials [] There are Spiritual issues to be addressed Gauger Delivery Interventions [] Prayer [] Active listening [] Non-anxious presence [] Spiritual/emotional support [] Crisis/trauma care [] Spiritual counseling [] Bereavement support [] Provided bereavement packet [] Provided Bible/devotional materials [] Provided toy/stuffed animal, coloring book to patient or family member [] Provided Communion [] Anointing/Wells [] Salvation [] Completed spiritual assessment [] Other: Impact on Illness or Injury [] Angry [] Fearful [] Anxious [] Often cries [] Exhaustion [] Unable to work [] Unable to attend shinto [] Unable to walk/stand [] Unable to read [] Unable to drive [] Unable to eat/drink [] Unable to sleep [] Unable to be with family [] Patient intubated [] Other: Summary Time spent with patient
[2021-11-04 11:18] VITALS: BP 109/67; PULSE 82; RESP 18; TEMP 36.8; O2SAT 97
[2021-11-04 11:29] LABS: Glucose Point of Care 412 mg/dL (70-110)
[2021-11-04] MEDS: morphine IR 15 mg Tablet PO (11:45)
--- NOTE | 2021-11-04 12:00 | PC.NURSE ---
notified Dr. meyer of pts blood sugar, recieved verbal order entered. discussed patient wanted to be discharge and Dr. Meyer stated she is not safe to be discharged and would be have to leave AMA.
[2021-11-04] MEDS: insulin lispro 100 unit/1 mL 20 UNIT SUBCUT (12:12)
--- NOTE | 2021-11-04 13:47 | PC.NURSE ---
Patient notified that because of her implanted defirbilator she is unable to have an MRI done. Patient stated that she would like to leave against medical advice. Patient verbalized understanding of risks associated with leaving AMA and stated that she will follow up with her PCP in morning to get antibiotics. Form signed, IV removed and patient escorted to main entrance. Dr. Meyer notified.
[2021-11-04 14:21] VITALS: BP 109/67; PULSE 82; RESP 18; TEMP 36.8; O2SAT 97
[2021-11-05 14:38] LABS: Lyme AB Screen <0.90 index
--- NOTE | 2021-11-06 12:09 | W.PM.EVENTAC ---
Event Note Event Note: On the day that she left AGAINST MEDICAL ADVICE, she left before I could see her. The day before she had been exigent to be discharged home, it seems, because she was very keen to smoke cigarettes. I gave her a powerful nicotine patch and this did not seem to help any. I warned her vehemently that she was suffering from an infection in her bloodstream and her sugar was poorly controlled and this combination could result in a very bad outcome including . I did not get a chance to talk to her on the morning she left AMA. But that is what she did. She was not discharged with any antibiotics or any other follow-ups having left AMA.
[2021-11-07 17:52] LABS: RMSF IGG NOT DETECTED; RMSF IGM NOT DETECTED
[2021-11-08 17:14] LABS: E. Chaffeensis AB IGG <1:64; E. Chaffeensis AB IGM <1:20
== END 2021-11-04 13:20 | disposition left against medical advice (07) | DRG 872 ==
LOC: ER 17:42 → MEDSURG 20:07
PROVIDERS: Physician Assistant; Admitting Provider Internal Medicine; Emergency Provider Emergency Medicine; PCP Nurse Practitioner Family; Visit Provider Internal Medicine
DX: A41.9 Sepsis, unspecified organism (principal); E87.1 Hypo-osmolality and hyponatremia; N17.9 Acute kidney failure, unspecified; F17.210 Nicotine dependence, cigarettes, uncomplicated; Z53.29 Procedure and treatment not carried out because of patient's decision for other reasons; E10.22 Type 1 diabetes mellitus with diabetic chronic kidney disease; E10.40 Type 1 diabetes mellitus with diabetic neuropathy, unspecified; N18.30 Chronic kidney disease, stage 3 unspecified; I50.9 Heart failure, unspecified; Z95.810 Presence of automatic (implantable) cardiac defibrillator; M54.9 Dorsalgia, unspecified; E86.0 Dehydration; J41.0 Simple chronic bronchitis
CPT/HCPCS: 36415; 36416; 62270; 70450; 71045; 72131; 74176; 80053; 80503; 81001; 82945; 82962; 83605; 84145; 84157; 85025; 85651; 86140; 86618; 86666; 86757; 87040; 87070; 87075; 87077; 87086; 87186; 87205; 87426; 87804; 89050; 93308; 96361; 96372; 96374; 99285; J1644; J1815 ×2; J2270; J2405; J2543; J3370; J7030

== ENCOUNTER → 2021-11-14 09:59 | Outpatient (BNVA) | payer MEDICAID, SELFPAY | PROVIDERS: PCP Nurse Practitioner Family; Visit Provider Internal Medicine Cardiovascular Disease | DX: I50.43 Acute on chronic combined systolic (congestive) and diastolic (congestive) heart failure (principal); I44.7 Left bundle-branch block, unspecified; I10 Essential (primary) hypertension; F17.200 Nicotine dependence, unspecified, uncomplicated; E11.22 Type 2 diabetes mellitus with diabetic chronic kidney disease; Z95.810 Presence of automatic (implantable) cardiac defibrillator | CPT/HCPCS: 80048; 85025 ==

== ENCOUNTER → 2021-11-19 08:15 | Outpatient (BNVA) | payer MEDICAID, SELFPAY | PROVIDERS: PCP Nurse Practitioner Family; Visit Provider Internal Medicine | DX: E10.59 Type 1 diabetes mellitus with other circulatory complications (principal); E10.42 Type 1 diabetes mellitus with diabetic polyneuropathy; E10.22 Type 1 diabetes mellitus with diabetic chronic kidney disease; N18.30 Chronic kidney disease, stage 3 unspecified; E78.2 Mixed hyperlipidemia; Z46.81 Encounter for fitting and adjustment of insulin pump; F17.210 Nicotine dependence, cigarettes, uncomplicated; Z79.4 Long term (current) use of insulin | CPT/HCPCS: 99214 ==

== ENCOUNTER → 2021-12-03 13:50 | Outpatient (BNVA) | payer MEDICAID, SELFPAY | PROVIDERS: PCP Nurse Practitioner Family; Visit Provider Internal Medicine | DX: Z46.81 Encounter for fitting and adjustment of insulin pump (principal); E10.59 Type 1 diabetes mellitus with other circulatory complications; E10.42 Type 1 diabetes mellitus with diabetic polyneuropathy; E10.22 Type 1 diabetes mellitus with diabetic chronic kidney disease; E78.2 Mixed hyperlipidemia; F17.210 Nicotine dependence, cigarettes, uncomplicated; Z79.4 Long term (current) use of insulin | CPT/HCPCS: 99214 ==

== ENCOUNTER → 2021-12-05 13:49 | Outpatient (BNVA) | payer MEDICAID, SELFPAY | PROVIDERS: PCP Nurse Practitioner Family; Visit Provider Nurse Practitioner Family | DX: I11.0 Hypertensive heart disease with heart failure (principal); I50.43 Acute on chronic combined systolic (congestive) and diastolic (congestive) heart failure; Z95.810 Presence of automatic (implantable) cardiac defibrillator; F17.210 Nicotine dependence, cigarettes, uncomplicated | CPT/HCPCS: 99214 ==

== ENCOUNTER → 2021-12-18 10:51 | Outpatient (BNVA) | payer MEDICAID, SELFPAY | PROVIDERS: PCP Nurse Practitioner Family; Visit Provider Internal Medicine Cardiovascular Disease | DX: Z45.02 Encounter for adjustment and management of automatic implantable cardiac defibrillator (principal) | CPT/HCPCS: 93284 ==

== ENCOUNTER → 2021-12-24 14:49 | Outpatient (BNVA) | payer MEDICAID, SELFPAY | PROVIDERS: PCP Nurse Practitioner Family; Visit Provider Internal Medicine Cardiovascular Disease | DX: I13.0 Hypertensive heart and chronic kidney disease with heart failure and stage 1 through stage 4 chronic kidney disease, or unspecified chronic kidney disease (principal); I50.43 Acute on chronic combined systolic (congestive) and diastolic (congestive) heart failure; I44.7 Left bundle-branch block, unspecified; Z95.810 Presence of automatic (implantable) cardiac defibrillator; E10.22 Type 1 diabetes mellitus with diabetic chronic kidney disease; F17.210 Nicotine dependence, cigarettes, uncomplicated; N18.30 Chronic kidney disease, stage 3 unspecified; Z79.4 Long term (current) use of insulin; Z79.84 Long term (current) use of oral hypoglycemic drugs; E10.59 Type 1 diabetes mellitus with other circulatory complications | CPT/HCPCS: 99214 ==

== ENCOUNTER → 2021-12-30 09:30 | Outpatient (BNVA) | payer MEDICAID, SELFPAY | PROVIDERS: PCP Nurse Practitioner Family; Visit Provider Internal Medicine Cardiovascular Disease | DX: I10 Essential (primary) hypertension (principal); I44.7 Left bundle-branch block, unspecified; I50.43 Acute on chronic combined systolic (congestive) and diastolic (congestive) heart failure; Z95.810 Presence of automatic (implantable) cardiac defibrillator; I50.9 Heart failure, unspecified | CPT/HCPCS: 80048; 83735; 83880 ==

== ENCOUNTER → 2022-01-28 10:56 | Outpatient (BNVA) | payer MEDICAID, SELFPAY | PROVIDERS: PCP Nurse Practitioner Family; Visit Provider Internal Medicine Cardiovascular Disease | DX: I13.0 Hypertensive heart and chronic kidney disease with heart failure and stage 1 through stage 4 chronic kidney disease, or unspecified chronic kidney disease (principal); N18.30 Chronic kidney disease, stage 3 unspecified; E10.22 Type 1 diabetes mellitus with diabetic chronic kidney disease; I50.43 Acute on chronic combined systolic (congestive) and diastolic (congestive) heart failure; Z79.4 Long term (current) use of insulin; Z79.84 Long term (current) use of oral hypoglycemic drugs; F17.210 Nicotine dependence, cigarettes, uncomplicated; Z95.810 Presence of automatic (implantable) cardiac defibrillator | CPT/HCPCS: 99214 ==

== ENCOUNTER → 2022-02-06 09:56 | Outpatient (BNVA) | payer MEDICAID, SELFPAY | PROVIDERS: PCP Nurse Practitioner Family; Visit Provider Internal Medicine Cardiovascular Disease | DX: I10 Essential (primary) hypertension (principal); I50.43 Acute on chronic combined systolic (congestive) and diastolic (congestive) heart failure; Z95.810 Presence of automatic (implantable) cardiac defibrillator | CPT/HCPCS: 80048; 83735; 83880 ==

== ENCOUNTER 2022-02-26 09:40 | Outpatient (CLI) | payer MEDICAID, SELFPAY ==
--- NOTE | 2022-02-26 10:00 | USCV_ITS ---
Paula Goodwin Age: 51 Gender: F : 1970 Exam Date: 02/26/2022 10:00 Ordering Phys: Sade Levy MD ([email or web address]) Technologist: Leyla Michaels Exam Location: [facility] [place] Indication: CHF and murmur BP: 140 / 75 HR: 100 Rhythm: Sinus Technical Quality: Adequate MEASUREMENTS (Male / Female) Normal Values 2D ECHO LV Diastolic Diameter PLAX 3.7 cm 4.2 - 5.9 / 3.9 - 5.3 cm LV Systolic Diameter PLAX 2.8 cm LV Chamber Size 2.8 cm IVS Diastolic Thickness 1.1 cm 0.6 - 1.0 / 0.6 - 0.9 cm IVS Systolic Thickness 1.5 cm LVPW Diastolic Thickness 1.2 cm 0.6 - 1.0 / 0.6 - 0.9 cm LVPW Systolic Thickness 1.4 cm RV Chamber Size 2.5 cm LVOT Diameter 2.0 cm LV Ejection Fraction 2D Teich 37.7 % LV Ejection Fraction MOD 2C 39.2 % LV Ejection Fraction 2C AL 41.6 % LA Diameter 3.2 cm LA Width 2.0 cm LA Height 3.3 cm RA Width 3.2 cm RA Height 3.3 cm Aorta at Sinotubular Diameter 1.9 cm IVC Diameter 1.9 cm M-MODE Aortic Annulus Diameter 3.4 cm LA Ao Ratio MM 1.1 MV E Point Septal Separation 0.7 cm DOPPLER AV Peak Velocity 134.0 cm/s LVOT Peak Velocity 82.0 cm/s AV Area Cont Eq vti 2.5 cm squared AV Area Cont Eq pk 2.0 cm squared MV Area PHT 5.4 cm squared Mitral E to A Ratio 1.2 MV E' Velocity 54.2 cm/s Mitral E to MV E' Ratio 9.9 Mitral E to LV E' Lateral Ratio 10.4 Mitral E to LV E' Septal Ratio 9.7 TR Peak Velocity 199.0 cm/s TR Peak Gradient 15.8 mmHg TR Mean Velocity 138.7 cm/s TR Mean Gradient 8.9 mmHg TR Velocity Time Integral 47.9 cm TV Peak E Velocity 73.0 cm/s Right Atrial Pressure 3.0 mmHg Pulmonary Artery Systolic Pressu 18.8 mmHg PV Peak Velocity 93.0 cm/s RV Acceleration Time 0.1 s RV Ejection Time 0.3 s RV AcT/ET 0.4 FINDINGS Left Ventricle Normal left ventricular cavity size. Mildly decreased left ventricular systolic function. Left ventricular ejection fraction is estimated at 50%. Mild global hypokinesis. Grade I diastolic dysfunction (abnormal relaxation filling pattern), normal to mildly elevated filling pressures. Abnormal septal motion. Right Ventricle Normal right ventricular size and systolic function. Right ventricular systolic pressure 23 mmHg. ICD wire visualized in the right ventricle. Right Atrium Normal right atrial size. Left Atrium Normal left atrial size. Mitral Valve Structurally normal mitral valve. Trace mitral valve regurgitation. Aortic Valve Aortic valve not well visualized. No aortic valve stenosis. No aortic valve regurgitation. Tricuspid Valve Tricuspid valve not well visualized. Trace tricuspid valve regurgitation. Pulmonic Valve Pulmonic valve not well visualized. No pulmonary valve stenosis. Pericardium No pericardial effusion. Echo free space anterior to the right ventricle likely represents a fat pad. Aorta Aorta not well visualized. IVC Normal IVC dimension. CONCLUSIONS 1. This is a technically difficult study. Optison was used per protocol. 2. Normal left ventricular cavity size. Mildly decreased left ventricular systolic function. Left ventricular ejection fraction is estimated at 50%. Mild global hypokinesis. Grade I diastolic dysfunction (abnormal relaxation filling pattern), normal to mildly elevated filling pressures. Abnormal septal motion. 3. Direct comparison to previous echocardiogram dated 11/04/2021, is not possible due to technically difficult study. Sade Levy MD (Electronically Signed) Final Date: 05 March 2022 17:21 S
[2022-02-26] MEDS: perflutren protein-a microsphr 0.22 mg/mL SDV 3 mL IV (10:50)
== END 2022-02-26 09:41 | disposition home or self-care (01) ==
LOC: RAD 09:43
PROVIDERS: PCP Nurse Practitioner Family; Visit Provider Internal Medicine Cardiovascular Disease
DX: I50.43 Acute on chronic combined systolic (congestive) and diastolic (congestive) heart failure (principal); R01.1 Cardiac murmur, unspecified
CPT/HCPCS: C8929

== ENCOUNTER → 2022-03-03 08:13 | Outpatient (BNVA) | payer MEDICAID, SELFPAY | PROVIDERS: PCP Nurse Practitioner Family; Visit Provider Internal Medicine | DX: E10.59 Type 1 diabetes mellitus with other circulatory complications (principal); E10.42 Type 1 diabetes mellitus with diabetic polyneuropathy; E10.649 Type 1 diabetes mellitus with hypoglycemia without coma; E10.22 Type 1 diabetes mellitus with diabetic chronic kidney disease; N18.30 Chronic kidney disease, stage 3 unspecified; E78.2 Mixed hyperlipidemia; Z79.4 Long term (current) use of insulin; Z46.81 Encounter for fitting and adjustment of insulin pump | CPT/HCPCS: 99214 ==

== ENCOUNTER → 2022-04-18 09:53 | Outpatient (BNVA) | payer MEDICAID, SELFPAY | PROVIDERS: PCP Nurse Practitioner Family; Visit Provider Internal Medicine Cardiovascular Disease | DX: Z45.02 Encounter for adjustment and management of automatic implantable cardiac defibrillator (principal) | CPT/HCPCS: 93284 ==

== ENCOUNTER → 2022-05-27 08:59 | Outpatient (BNVA) | payer MEDICAID, SELFPAY | PROVIDERS: PCP Nurse Practitioner Family; Visit Provider Internal Medicine | DX: E10.22 Type 1 diabetes mellitus with diabetic chronic kidney disease (principal) | CPT/HCPCS: 80061; 83036; 83721 ==

== ENCOUNTER → 2022-06-03 08:08 | Outpatient (BNVA) | payer MEDICAID, SELFPAY | PROVIDERS: PCP Nurse Practitioner Family; Visit Provider Internal Medicine | DX: E10.59 Type 1 diabetes mellitus with other circulatory complications (principal); E10.42 Type 1 diabetes mellitus with diabetic polyneuropathy; E10.22 Type 1 diabetes mellitus with diabetic chronic kidney disease; N18.30 Chronic kidney disease, stage 3 unspecified; E78.2 Mixed hyperlipidemia; Z46.81 Encounter for fitting and adjustment of insulin pump; Z79.4 Long term (current) use of insulin; F17.210 Nicotine dependence, cigarettes, uncomplicated | CPT/HCPCS: 99214 ==

== ENCOUNTER → 2022-07-18 10:18 | Outpatient (BNVA) | payer MEDICAID, SELFPAY | PROVIDERS: PCP Nurse Practitioner Family; Visit Provider Internal Medicine Cardiovascular Disease | DX: Z45.02 Encounter for adjustment and management of automatic implantable cardiac defibrillator (principal) | CPT/HCPCS: 93284 ==

== ENCOUNTER → 2022-08-21 08:30 | Outpatient (BNVA) | payer MEDICAID, SELFPAY | PROVIDERS: PCP Nurse Practitioner Family; Visit Provider Obstetrics & Gynecology | DX: Z01.419 Encounter for gynecological examination (general) (routine) without abnormal findings (principal) | CPT/HCPCS: 87624 ==

== ENCOUNTER → 2022-09-03 07:54 | Outpatient (BNVA) | payer MEDICAID, SELFPAY | PROVIDERS: PCP Nurse Practitioner Family; Visit Provider Internal Medicine | DX: E10.59 Type 1 diabetes mellitus with other circulatory complications (principal); E10.42 Type 1 diabetes mellitus with diabetic polyneuropathy; E10.40 Type 1 diabetes mellitus with diabetic neuropathy, unspecified; N18.30 Chronic kidney disease, stage 3 unspecified; E78.2 Mixed hyperlipidemia; Z79.4 Long term (current) use of insulin; Z46.81 Encounter for fitting and adjustment of insulin pump; E10.22 Type 1 diabetes mellitus with diabetic chronic kidney disease | CPT/HCPCS: 99214 ==

== ENCOUNTER → 2022-10-17 09:36 | Outpatient (BNVA) | payer MEDICAID, SELFPAY | PROVIDERS: PCP Nurse Practitioner Family; Visit Provider Internal Medicine Cardiovascular Disease | DX: Z45.02 Encounter for adjustment and management of automatic implantable cardiac defibrillator (principal) | CPT/HCPCS: 93296 ==

== ENCOUNTER → 2022-11-13 12:19 | Outpatient (BNVA) | payer MEDICAID, SELFPAY | PROVIDERS: PCP Nurse Practitioner Family; Visit Provider Nurse Practitioner Family | DX: I11.0 Hypertensive heart disease with heart failure (principal); I50.43 Acute on chronic combined systolic (congestive) and diastolic (congestive) heart failure; Z95.810 Presence of automatic (implantable) cardiac defibrillator | CPT/HCPCS: 99214 ==

== ENCOUNTER → 2022-12-05 07:51 | Outpatient (BNVA) | payer MEDICAID, SELFPAY | PROVIDERS: PCP Nurse Practitioner Family; Visit Provider Internal Medicine | DX: E10.40 Type 1 diabetes mellitus with diabetic neuropathy, unspecified (principal); E78.2 Mixed hyperlipidemia; Z46.81 Encounter for fitting and adjustment of insulin pump; Z79.4 Long term (current) use of insulin | CPT/HCPCS: 99214 ==

== ENCOUNTER → 2023-01-13 09:16 | Outpatient (BNVA) | payer MEDICAID, SELFPAY | PROVIDERS: PCP Nurse Practitioner Family; Visit Provider Podiatrist Foot & Ankle Surgery | DX: E10.22 Type 1 diabetes mellitus with diabetic chronic kidney disease (principal); L60.3 Nail dystrophy; M76.62 Achilles tendinitis, left leg; Z79.4 Long term (current) use of insulin | CPT/HCPCS: 73630; 99204 ==

== ENCOUNTER → 2023-02-25 09:13 | Outpatient (BNVA) | payer MEDICAID, SELFPAY | PROVIDERS: PCP Nurse Practitioner Family; Visit Provider Podiatrist Foot & Ankle Surgery | DX: M76.62 Achilles tendinitis, left leg (principal); E10.22 Type 1 diabetes mellitus with diabetic chronic kidney disease; L60.3 Nail dystrophy; N18.30 Chronic kidney disease, stage 3 unspecified; Z79.4 Long term (current) use of insulin | CPT/HCPCS: 99213 ==

== ENCOUNTER 2023-02-25 14:40 | Outpatient (CLI) | payer MEDICAID, SELFPAY | END 2023-02-25 14:41 | disposition home or self-care (01) | LOC: SPT 14:41 | PROVIDERS: PCP Nurse Practitioner Family; Visit Provider Podiatrist Foot & Ankle Surgery | DX: Z46.89 Encounter for fitting and adjustment of other specified devices (principal); M76.62 Achilles tendinitis, left leg | CPT/HCPCS: 97760; L4361 ==

== ENCOUNTER → 2023-03-05 09:42 | Outpatient (BNVA) | payer MEDICAID, SELFPAY | PROVIDERS: PCP Nurse Practitioner Family; Referring Provider Internal Medicine; Visit Provider Internal Medicine | DX: E78.2 Mixed hyperlipidemia (principal); E10.40 Type 1 diabetes mellitus with diabetic neuropathy, unspecified; Z79.4 Long term (current) use of insulin; E10.22 Type 1 diabetes mellitus with diabetic chronic kidney disease; Z46.81 Encounter for fitting and adjustment of insulin pump; E11.22 Type 2 diabetes mellitus with diabetic chronic kidney disease | CPT/HCPCS: 80053; 80061; 82043; 82306; 83036; 83721 ==

== ENCOUNTER → 2023-03-10 08:35 | Outpatient (BNVA) | payer MEDICAID, SELFPAY | PROVIDERS: PCP Nurse Practitioner Family; Visit Provider Internal Medicine | DX: E10.59 Type 1 diabetes mellitus with other circulatory complications (principal); E10.42 Type 1 diabetes mellitus with diabetic polyneuropathy; Z79.4 Long term (current) use of insulin; E10.22 Type 1 diabetes mellitus with diabetic chronic kidney disease; E10.40 Type 1 diabetes mellitus with diabetic neuropathy, unspecified; N18.30 Chronic kidney disease, stage 3 unspecified | CPT/HCPCS: 99214 ==

== ENCOUNTER → 2023-04-10 10:48 | Outpatient (BNVA) | payer MEDICAID, SELFPAY | PROVIDERS: PCP Nurse Practitioner Family; Referring Provider Family Medicine; Visit Provider Family Medicine | DX: E11.22 Type 2 diabetes mellitus with diabetic chronic kidney disease (principal); N18.30 Chronic kidney disease, stage 3 unspecified | CPT/HCPCS: 80069; 82043; 82306; 82542 ==

== ENCOUNTER → 2023-04-13 10:52 | Outpatient (BNVA) | payer MEDICAID, SELFPAY | PROVIDERS: PCP Nurse Practitioner Family; Visit Provider Podiatrist Foot & Ankle Surgery | DX: M76.62 Achilles tendinitis, left leg (principal); E10.22 Type 1 diabetes mellitus with diabetic chronic kidney disease; Z79.84 Long term (current) use of oral hypoglycemic drugs; N18.30 Chronic kidney disease, stage 3 unspecified | CPT/HCPCS: 99213 ==

== ENCOUNTER → 2023-04-17 08:55 | Outpatient (BNVA) | payer MEDICAID, SELFPAY | PROVIDERS: PCP Nurse Practitioner Family; Visit Provider Internal Medicine Cardiovascular Disease | DX: I13.0 Hypertensive heart and chronic kidney disease with heart failure and stage 1 through stage 4 chronic kidney disease, or unspecified chronic kidney disease (principal); E10.22 Type 1 diabetes mellitus with diabetic chronic kidney disease; N18.30 Chronic kidney disease, stage 3 unspecified; I50.43 Acute on chronic combined systolic (congestive) and diastolic (congestive) heart failure; Z79.4 Long term (current) use of insulin; I44.7 Left bundle-branch block, unspecified; Z95.810 Presence of automatic (implantable) cardiac defibrillator; F17.200 Nicotine dependence, unspecified, uncomplicated | CPT/HCPCS: 99214 ==

== ENCOUNTER → 2023-04-17 08:56 | Outpatient (BNVA) | payer MEDICAID, SELFPAY | PROVIDERS: PCP Nurse Practitioner Family; Visit Provider Internal Medicine Cardiovascular Disease | DX: Z53.9 Procedure and treatment not carried out, unspecified reason (principal) | CPT/HCPCS: 93296; 99999 ==

== ENCOUNTER 2023-04-30 06:42 | Outpatient (CLI) | payer MEDICAID, SELFPAY ==
--- NOTE | 2023-04-30 07:30 | US_ITS ---
WS: [id number] ULTRASOUND SOFT TISSUES LEFT Achilles tendon. HISTORY: M76.62 - Achilles tendinitis, left leg COMPARISON: Radiographs 01/13/2023 TECHNIQUE: 2-D and color Doppler imaging is submitted. Achilles tendon is not well demonstrated in its entirety. There is an area of soft tissue thickening and more prominent hypoechoic thickening near the distal expected location of the tendon. There is no surrounding fluid. There is a portion of the tendon more proximally that appears thinned. IMPRESSION: Very limited evaluation of the Achilles tendon. Area of hypoechoic soft tissue thickening may be related to a tendinopathy. The more proximal [place] s tendon as visualized appears thin. There is no surrounding fluid. There may be an acute injury of t endinopathy superimposed on chronic disease. US/US soft tissue/extremity [id number] Recommendation: If the patient cannot have an MRI examination suggest short-ter m ultrasound follow-up if clinically thought necessary. Recommend short-term ul trasound follow-up with the radiologist present during the examination and rui gómez to the RIGHT Achilles tendon.
== END 2023-04-30 06:43 | disposition home or self-care (01) ==
LOC: RAD 06:42
PROVIDERS: PCP Nurse Practitioner Family; Visit Provider Podiatrist Foot & Ankle Surgery
DX: M76.62 Achilles tendinitis, left leg (principal)
CPT/HCPCS: 76882

== ENCOUNTER 2023-05-19 06:00 | Outpatient (RCR) | payer MEDICARE, MEDICAID, SELFPAY | END 2023-06-04 23:59 | disposition home or self-care (01) | LOC: MPT 06:00 | PROVIDERS: Visit Provider Podiatrist Foot & Ankle Surgery | DX: M76.62 Achilles tendinitis, left leg (principal) | CPT/HCPCS: 97110; 97140; 97162 ==

== ENCOUNTER 2023-06-05 06:00 | Outpatient (RCR) | payer MEDICARE, MEDICAID, SELFPAY | END 2023-07-05 23:59 | disposition home or self-care (01) | LOC: MPT 06:00 | PROVIDERS: PCP Family Medicine; Visit Provider Podiatrist Foot & Ankle Surgery | DX: M76.62 Achilles tendinitis, left leg (principal) | CPT/HCPCS: 97110; 97140 ==

== ENCOUNTER → 2023-06-10 08:18 | Outpatient (BNVA) | payer MEDICARE, MEDICAID, SELFPAY | PROVIDERS: PCP Family Medicine; Visit Provider Internal Medicine | DX: E10.22 Type 1 diabetes mellitus with diabetic chronic kidney disease (principal); E10.42 Type 1 diabetes mellitus with diabetic polyneuropathy; N18.30 Chronic kidney disease, stage 3 unspecified; Z79.85 Long-term (current) use of injectable non-insulin antidiabetic drugs; Z79.4 Long term (current) use of insulin | CPT/HCPCS: 99214 ==

== ENCOUNTER → 2023-07-01 08:08 | Outpatient (BNVA) | payer MEDICARE, MEDICAID, SELFPAY | PROVIDERS: PCP Family Medicine; Visit Provider Podiatrist Foot & Ankle Surgery | DX: E10.22 Type 1 diabetes mellitus with diabetic chronic kidney disease (principal); M76.62 Achilles tendinitis, left leg; M67.88 Other specified disorders of synovium and tendon, other site; Z79.4 Long term (current) use of insulin | CPT/HCPCS: 99213 ==

== ENCOUNTER 2023-07-06 06:00 | Outpatient (RCR) | payer MEDICARE, MEDICAID, SELFPAY | END 2023-08-05 23:59 | disposition home or self-care (01) | LOC: MPT 06:00 | PROVIDERS: PCP Family Medicine; Visit Provider Podiatrist Foot & Ankle Surgery | DX: M76.62 Achilles tendinitis, left leg (principal) | CPT/HCPCS: 97110; 97140 ==

== ENCOUNTER → 2023-07-21 14:38 | Outpatient (BNVA) | payer MEDICARE, MEDICAID, SELFPAY | PROVIDERS: PCP Family Medicine; Visit Provider Internal Medicine Cardiovascular Disease | DX: Z45.02 Encounter for adjustment and management of automatic implantable cardiac defibrillator (principal); I11.0 Hypertensive heart disease with heart failure; I50.43 Acute on chronic combined systolic (congestive) and diastolic (congestive) heart failure; I42.0 Dilated cardiomyopathy; E10.59 Type 1 diabetes mellitus with other circulatory complications; Z79.4 Long term (current) use of insulin | CPT/HCPCS: 99214 ==

== ENCOUNTER → 2023-07-28 13:20 | Outpatient (BNVA) | payer MEDICARE, MEDICAID, SELFPAY | PROVIDERS: PCP Family Medicine; Visit Provider Thoracic Surgery (Cardiothoracic Vascular Surgery) | DX: Z45.02 Encounter for adjustment and management of automatic implantable cardiac defibrillator (principal) | CPT/HCPCS: 99203 ==

== ENCOUNTER 2023-08-10 05:10 | Day surgery (SDC) | payer MEDICARE, MEDICAID, SELFPAY ==
--- OUTSIDE RECORDS SUMMARY | 2023-07-29 09:16 | XMS_ITS | Patient Health Record ---
Author Name Unknown Organization [email or web address] Address [address] [place], [place] [id number] Care Team Providers Care Shrimp Trawler Name Role Phone Brodie Mix Primary Care Provider Unavaileleazar Sweeney MD, Ed Unavailable [phone] Yoselin Reyes Unavailable [phone] ALLERGIES Allergen (clinical drug ingredient) Drug/Non Drug Allergy documented on EMR Reaction Allergy Type Onset Date Status codeine codeine stomach upset Drug Allergy Act osmani RESULTS Component Value Reference Range Notes Urine tox screen / MS if ind icated Reviewed date:12/15/2022 08:28:11 AM Interpretation:Consistent Performing Lab: Notes/Report: Consistent REASON FOR REFERRAL No Information MEDICATIONS Medication SIG (Take, Route, Frequency, Duration) Notes Start Date End Date Status atorvastatin 40 mg 1 tab orally at bedtime Active BC 845 mg-65 mg 1 PKT orally 1 X PRN Active Entresto 24 mg-26 mg 1 tab(s) orally 2 t imes a day Active Victoza 18 mg/3 mL as directed subcutan eously once a day for 30 day(s) Active hydrOXYzine hydrochloride 25 mg 1 tab orally 4 times a day A ctive Vitamin D2 50,000 intl units 1 cap orally 2 times a week Active pregabalin 100 mg 1 cap orally Q12H fo r 30 day(s) 03/24/2023 Active ibuprofen 200 mg 2-4 tabs orally ever y 6 hours Active Zinc 140 mg (as elemental zinc 50 mg) 1 tab orally once a day Acti ve Lantus Solostar Pen 100 units/mL as directed 2 times a day Ac tive Narcan 4 mg/0.1 mL as directed intranas ally once 04/30/2021 Active NovoLOG FlexPen 100 units/mL as directed subcutaneously 3 times a day Active pantoprazole 20 mg 1 tab orally once a day Active potassium chloride 10 mEq 1 tab(s) orall y 2 times a day for 30 day(s) 01/20/2022 Active Detrol 1 mg 1 tab(s) orally 2 ti mes a day for 30 day(s) 09/10/2022 Active traZODone 150 mg 1 tab orally at bedtime Active SOCIAL HISTORY Tobacco Use: Social History Observation Description Date Details (start date - stop date) Current Smoker NA - NA Sex Assigned At : Social History Observation Description Sex Assigned At Unknown alcohol Question Answer Notes Did you have a drink containing alcohol in the p ast year? No Points 0 Interpretation Negative Tobacco use: Question Answer Notes : current smoker Are you interested in quitting? Thinking about q uitting How many cigarettes a day do you smoke? 11-20 How often do you smoke cigarettes? every day How soon after you wake up d o you smoke your first cigarette? within 5 min When did you start smoking? 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) use of opiate analgesic (Z79.891) Active confirmed High risk drug monitoring status (079019588) Problem Type 1 diabetes mellitus with diabetic polyneuropathy (E10.42) Active confirmed Polyneuropathy due to diabetes mellitus type I (945935647) Problem Type 2 diabetes mellitus with diabetic neuropathy, unspecified (E11.40) Active confirmed Diabetic peripheral neuropathy associated with type 2 diabetes mellitus (4178090054084) Problem Other specified anxiety disorders (F41.8) Active confirmed Anxiety disorde r (663491872) Problem Other sleep disorders (G47.8) Active confirmed Sleep diso rder (56015858) Problem Other chronic pain (G89.29) Active confirmed Chronic pain (99704041) Problem Chronic pain syndrome (G89.4) Active confirmed Chronic figueroa n syndrome (036022741) Problem Pain in left hip (M25.552) Active confirmed Arthralgia of t he pelvic region and thigh (249300468) Problem Intervertebral disc disorders with radiculopathy, lumbar region (M51.16) Active confirmed Radiculopathy d ue to lumbar intervertebral disc disorder (660450404137719) Problem Other alf (current) drug therapy (Z79.899) Active confirmed Long-term current use of drug therapy (177216551) Problem Myalgia, other site (M79.18) Active confirmed Muscle pain (03717849) Problem Vertebrogenic low back pain (M54.51) Active confirmed Pain in lumbar spine (736761188) VITAL SIGNS Temperature 97.8 degrees Fahrenheit 03/24/2023 Oximetry 97 % 03/24/2023 Height 67 in 03/24/2023 Weight 214 lbs 03/24/2023 BMI 33.51 kg/m2 03/24/2023 Encounters Encounter Location Date Provider Diagnosis [facility] [address] [place] [address] 08/04/2022 Ed Sweeney Spondylosis without myelopathy or radiculopathy, lumbar region M47.816 and Other specified anxiety disorders F41.8 [facility] [address] [place], [place] [id number] 08/18/2022 Ed Sweeney [facility] [address] [place], [place] [id number] 09/10/2022 Ed Sweeney Vertebrogenic low ba ck pain M54.51 ; Myalgia, other site M79.18 ; Pain in left hip M25.552 ; Spondylosis without myelopathy or radiculopathy, lumbar region M47.816 ; Sacroiliitis, not elsewhere classified M46.1 ; Intervertebral disc disorders with radiculopathy, lumbar region M51.16 ; Other sleep disorders G47.8 and physics technical officer (current) use of opiate analgesic Z79.891 [facility] [address] [place], [place] [id number] 12/10/2022 Yoselin Chatterjee Other chronic pain G89.29 ; Type 2 diabetes mellitus with diabetic neuropathy, unspecified E11.40 ; Vertebrogenic low back pain M54.51 ; Sacroiliitis, not elsewhere classified M46.1 and physics technical officer (current) use of opiate analgesic Z79.891 [facility] [address] [place], [place] [id number] 12/23/2022 Ed Patel Sacroiliitis, not elsewhere classified M46.1 ; Other specified anxiety disorders F41.8 ; Other chronic pain G89.29 ; Type 2 diabetes mellitus with diabetic neuropathy, unspecified E11.40 and Vertebrogenic low back pain M54.51 [facility] [address] [place] [address] 02/02/2023 Ed Sweeney Sacroiliitis, not elsewhere classified M46.1 and Other specified anxiety disorders F41.8 [facility] [address] [place], [place] [id number] 02/04/2023 Ed Sweeney Sacroiliitis, not elsewhere classified M46.1 and Other specified anxiety disorders F41.8 [facility] [address] [place] [address] 02/09/2023 Ed Sweeney Spondylosis without myelopathy or radiculopathy, lumbar region M47.816 ; Sacroiliitis, not elsewhere classified M46.1 and Other specified anxiety disorders F41.8 [facility] [address] [place], [place] [id number] 02/23/2023 Ed Sweeney [facility] [address] [place], [place] [id number] 03/24/2023 Yoselin Sen Other chronic pain G89.29 ; Vertebrogenic low back pain M54.51 ; Sacroiliitis, not elsewhere classified M46.1 and Type 2 diabetes mellitus with diabetic neuropathy, unspecified E11.40 ASSESSMENTS Encounter Date Diagnosis Assessment Notes Treatment Notes Treatment Clinical Notes 08/04/2022 Spondylosis without myelopathy or radiculopathy, lumbar region (ICD-10 - M47.816) Plan bilateral lumbar RFA of T12, L1 and L2 medial branch 08/04/2022 Other specified anxiety disorders (ICD-10 - F41.8) Plan monitored anesthesia care 09/10/2022 Myalgia, other site (ICD-10 - M79.18) Pattern has been appreciated and noted to be consistent with an iliopsoas myofascial pain syndrome. This syndrome has shown improvement with interventional spine treatment of the lumbosacral region (BLE symptoms resolved post prior bilateral sacral RFA procedures) 09/10/2022 Vertebrogenic low back pain (ICD-10 - M54.51) Chronic axial lumbosacral spine pain. Prior conservative treatment by patient as noted, below. Prior minimally invasive interventional spine treatment as noted. Oral opioid (and gabapentin) medication use with history of benefit. Plan to continue medication management 12/10/2022 Type 2 diabetes mellitus with diabetic neuropathy, unspecified (ICD-10 - E11.40) Patient reports that her molded candles wicker recommends a change from gabapentin to duloxetine or pregabalin. Plan trial of pregabalin 12/10/2022 Other chronic pain (ICD-10 - G89.29) Patient reports that her pain medication causes some drowsiness so she is using it minimally. Plan to continue oral opioid medication management with no refills today 12/23/2022 Sacroiliitis, not elsewhere classified (ICD-10 - M46.1) Patient reports return of LLE symptoms. LLE pain resolution for 1 1/2 years noted post prior left sacral RFA procedure. That benefit has waned. Plan left SI joint local anesthetic injection (NO STEROID). Consider sacral denervation procedure via RFA if diagnostic block noted. Risks, benefits, and alternatives reviewed with patient. Questions answered to the patient's reported satisfaction. Preparation for procedure reviewed with patient; printed instructions declined 02/02/2023 Sacroiliitis, not elsewhere classified (ICD-10 - M46.1) Plan left SI joint local anesthetic injection (NO STEROID) 02/02/2023 Other specified anxiety disorders (ICD-10 - F41.8) Plan moderate IV sedation with midazolam and/or fentanyl 02/04/2023 Sacroiliitis, not elsewhere classified (ICD-10 - M46.1) Left SI joint local anesthetic injection with diagnostic efficacy appreciated by patient. Plan left lateral branch RFA of S1, S2, and S3. Will need to also address the left L5 dorsal ramus contribution to the sacral denervation procedure. Risks, benefits, and alternatives reviewed with patient a prior office visit. Questions answered to the patient's reported satisfaction. Preparation for procedure reviewed with patient by phone 02/04/2023 Other specified anxiety disorders (ICD-10 - F41.8) Plan monitored anesthesia care 12/23/2022 Other specified anxiety disorders (ICD-10 - F41.8) Plan moderate IV sedation as needed with midazolam and / or fentanyl 02/09/2023 Spondylosis without myelopathy or radiculopathy, lumbar region (ICD-10 - M47.816) Plan left sacral denervation with radiofrequency lesioning of the lateral branches of S1, S2, and S3, plus the left L5 dorsal ramus 03/24/2023 Other chronic pain (ICD-10 - G89.29) Patient reports that she has discontinued her tramadol. Plan to continue Lyrica with a dose titration 03/24/2023 Vertebrogenic low back pain (ICD-10 - M54.51) Chronic axial lumbosacral spine pain 03/24/2023 Sacroiliitis, not elsewhere classified (ICD-10 - M46.1) Left sacral denervation procedure via RFA with efficacy appreciated for left sacral axial pain and LLE symptoms 12/23/2022 Other chronic pain (ICD-10 - G89.29) Patient has reported that her pain medication causes some drowsiness so she is using it minimally. Plan to continue oral opioid medication management as needed. Lyrica works better than gabapentin, plan to continue 02/09/2023 Sacroiliitis, not elsewhere classified (ICD-10 - M46.1) 12/10/2022 Vertebrogenic low back pain (ICD-10 - M54.51) Chronic axial lumbosacral spine pain 09/10/2022 Pain in left hip (ICD-10 - M25.552) Mild osteoarthritis left hip as per prior left hip CT report. Altenatively, hip pain may be part of myofascial pain syndrome, secondary to lumbosacral arthropathy (improvement has been noted by patient post left sacral RFA procedure, below) 09/10/2022 Spondylosis without myelopathy or radiculopathy, lumbar region (ICD-10 - M47.816) Bilateral L3, bilateral L4 medial branch, bilateral L5 dorsal ramus RFA procedure with history of efficacy appreciated by patient for lower lumbar axial pain as per prior updated patient report. Bilateral T12 medial branch, bilateral L1 medial branch, and bilateral L2 medial branch RFA procedure with history of efficacy appreciated by patient for upper lumbar pain 12/10/2022 Sacroiliitis, not elsewhere classified (ICD-10 - M46.1) Patient reports return of LLE symptoms. LLE pain improvement noted post prior left sacral RFA procedure. That benefit may have waned. Plan office visit with Dr. Sweeney to discuss interventional treatment options 12/23/2022 Type 2 diabetes mellitus with diabetic neuropathy, unspecified (ICD-10 - E11.40) Patient had reported that her molded candles wicker recommended a change from gabapentin to duloxetine or pregabalin 02/09/2023 Other specified anxiety disorders (ICD-10 - F41.8) Plan monitored anesthesia care 03/24/2023 Type 2 diabetes mellitus with diabetic neuropathy, unspecified (ICD-10 - E11.40) Patient reports benefit with use of pregabalin for neuropathy symptoms. Plan to continue with dose titration 12/23/2022 Vertebrogenic low back pain (ICD-10 - M54.51) Chronic axial lumbosacral spine pain 12/10/2022 [facility] (current) use of opiate analgesic (ICD-10 - Z79.891) Plan urine toxicology screen today to monitor for presence of any unprescribed or illicit drugs. Plan to send specimen to an outside lab to monitor compliance regarding use of tramadol as testing not available in this facility lab 09/10/2022 Sacroiliitis, not elsewhere classified (ICD-10 - M46.1) Bilateral sacral RFA procedures with history of great efficacy appreciated for sacral axial pain and lower extremity pain which has helped improve patient's ability to ambulate 09/10/2022 Intervertebral disc disorders with radiculopathy, lumbar region (ICD-10 - M51.16) Could consider LESI, however, no nerve root impingement was noted upon review of imaging study report (just mild foraminal stenosis as described on the report). Lower extremity symptoms may have been secondary to lumbosacral arthropathy (lower extremity sciatica symptoms resolved post sacral RFA proceures, below). Patient with history of blood sugar spikes, difficult to control diabetes. Plan to minimize use of corticosteroid 09/10/2022 Other sleep disorders (ICD-10 - G47.8) Patient has described sleep as poor with complaints of frequent awakenings, non-refreshing sleep, restless legs, restlessness during sleep, morning headaches, difficulty in sleeping, thrashing about, and impaired memory / intellectual function. Patient has not had a sleep study. [place] Sleepiness Scale: 5. Have strongly recommended a sleep study. Prior offer of an order for such a study was declined / deferred by patient: patient has verbalized understanding to notify this facility if the study is desired. Plan to restrict opioid usage in relation to sleep: patient has verbalized understanding to hold short-acting opioids within four hours of planned sleep. Patient has been counseled on the risks of sleep apnea (if present), with or without opioids and / or other sedative usage and the patient verbalized understanding and acceptance of the increased risk (sleep apnea, respiratory depression, ) with opioid and / or sedative substance usage. Patient has been counseled that synergistic risk occurs with concomitant opioid and sedative usage. Patient has been counseled to hold opioid and / or sedative substances prior to planned sleep or dangerous activities and patient verbalized understanding that noncompliance would be at patient's increased risk 09/10/2022 [facility] (current) use of opiate analgesic (ICD-10 - Z79.891) Patient has a total daily MED of 20. This places the patient in the [facility]' low risk category for total daily opioid usage (not to be confused with the separate potential significant risk in regards to possible sleep apnea, above). Have recommended patient taper daily doses to the lowest number of daily doses that provide effective analgesia. Patient has received the Opioid Analgesic [facility] Patient Counseling Guide. Patient has had opportunity to read the Guide and ask questions pertaining to the Guide. Patient has been advised on 04/30/21 that due to the Federal Government concerns and actions, any suspected patient misuse, abuse, or diversion of controlled substances (i.e. opioids/narcotics/pa in killers) WILL result in dissolution of treatment from this clinic. Patients adhering to the concepts contained within the patient's Treatment Agreement will be protected from such termination of care. Patient was given a copy of the Treatment Agreement, signed by patient on 04/17/21. Patient signed an opioid consent form on 04/30/21. Patient has accepted a prescription for Narcan nasal spray as required by Medicaid. Opioid Risk Tool score 1 - low risk 12/23/2022 Other 09/10/2022 Other 12/10/2022 Other 03/24/2023 Other Patient reports she is being treated by Dr. Giraldo for a torn left Achilles tendon. Next visit is on 04/13/23 to discuss possible surgery 02/04/2023 Other PLAN OF TREATMENT Next Appt Details Provider Name:Ed Dupont son, 09/16/2023 10:30:00 AM, [address], [place], [place], [id number], Insurance Providers Payer Name Payer Address Payer Phone Subscriber Number Group Number Insured Name Patient Relationship to Insured Coverage Start Date Coverage End Date [place] [employer] [address] [place] [address] [id number] Paula Goodwin Self - patient is the insured MEDICAL (GENERAL) HISTORY Medical History History ICD Code Chronic pain Low back pain Lumbar disc disease and spondylosis Sacroiliitis Muscle spasms Neuropathy Diabetes mellitus with diabetic neuropat hy Chronic kidney disease stage 3 Depression Dysrhytmia, defibrillator implantation i n 2009 [address]iac workup performed by Dr. Levy at [facility] 04/29/21 Infected left finger and asy mptomatic bladder inection (led to hopitalization) Left Achilles' tendon tear Tobacco use, possible COPD Obesity, mild (history of moderate obesi ty) Sleep disorder Surgical History Surgery Date(Month/Year) Appendectomy, 1988 Cholecystectomy, 1990 Hysterectomy, 2002 Defibrillator implantation, performed in [place], [place], 2009 Hospitalization History Reason Date(Month/Year) Sepsis, [facility], 11/23/21-11/28/21
[2023-08-10] VITALS (10 sets, daily range): BP systolic 123–164; BP diastolic 63–76; PULSE 74–95; RESP 15–24; TEMP 36.1–36.4; O2SAT 90–98; BMI 35.2
--- OUTSIDE RECORDS SUMMARY | 2023-08-10 05:12 | XMS_ITS | Continuity of Care Document ---
Author Name Unknown Organization [facility], [facility] bettermarks Address [address] [place] [address] Phone Care Team Providers Care Clay Miller Name Role Phone Ruthie August NP Unavailable Unavailab le Allergies, Adverse Reactions, Alerts Substance Reaction Status Criticality No Known Allergies Active No Inform ation Medications Medication Instructions Dosage Effective Dates (start - stop) Status Comments acetaminophen 500 mg tablet take 1 tablet by oral route every 4 - 6 hours as needed not to exceed 8 tablets per 24hrs 500 MG - Active Toujeo SoloStar U-300 Insulin 300 unit/mL (1.5 mL) subcutaneous pen 35 units am and 35 units pm inject by subcutaneous route as per insulin protocol - Active Linzess 145 mcg capsule take 1 capsule by oral route every day on an empty stomach at least 30 minutes before 1st meal of the day 145 MCG - Active Ventolin HFA 90 mcg/actuation aerosol inhaler inhale 2 puff by inhalation route every 4 - 6 hours as needed 180 MCG - Active Robitussin Cough-Chest Congestion DM 5 mg-100 mg/5 mL oral liquid AD - Active Qvar 40 mcg/actuation Metered Aerosol oral inhaler inhale 1 puff by inhalation route 2 times every day - Active prednisone 10 mg tablet take 1 tablet by oral route 3 times every day 10 MG - Active loratadine 10 mg capsule one daily prn congestion - Active Atrovent HFA 17 mcg/actuation aerosol inhaler inhale 2 puff by inhalation route 4 times every day 34 MCG - Active doxycycline monohydrate 100 mg capsule take 1 capsule by oral route 2 times every day 100 MG - Active pantoprazole 40 mg tablet,delayed release take 1 tablet by oral route every day 40 MG - Active Tresiba FlexTouch U-100 insulin 100 unit/mL (3 mL) subcutaneous pen inject by subcutaneous route 35 units in am and 35 units at pm - Active Novolog Flexpen U-100 Insulin aspart 100 unit/mL subcutaneous inject by subcutaneous route 16-20 units with meals TID - Active atorvastatin 10 mg tablet take 1 tablet by oral route 2 times every day 10 MG - Active buspirone 15 mg tablet take 1 tablet by oral route 3 times every day 15 MG - Active carvedilol 3.125 mg tablet take 1 tablet by oral route 2 times every day with food 3.125 MG - Active fludrocortisone 0.1 mg tablet take 1 tablet by oral route every day 0.1 MG - Active gabapentin 300 mg capsule take 1 capsule by oral route 3 times every day 300 MG - Active lisinopril 2.5 mg tablet take 1 tablet by oral route every day 2.5 MG - Active oxybutynin chloride ER 10 mg tablet,extended release 24 hr take 1 tablet by oral route every day 10 MG - Active paroxetine 40 mg tablet take 1 tablet by oral route 2 times every day 40 MG - Active ranitidine 150 mg tablet take 1 tablet by oral route 2 times every day - Active trazodone 150 mg tablet take 1 tablet by oral route every day 150 MG - Active Entresto 24 mg-26 mg tablet take 1 tablet by oral route 2 times every day 1.00 tablet - Active Vitamin D2 50,000 unit capsule take 1 capsule by oral route every week - Active hydroxyzine HCl 25 mg tablet take 1 tablet by oral route every day as needed 25 MG - Active Nicoderm CQ 14 mg/24 hr daily transdermal patch apply 1 patch by transdermal route every day; call [email or web address] to get help paying for patches - Active Procedures Procedure Date Office/outpatient visit,est, mod 2017 Office/outpatient visit,new, mod 2017 Advance Directives Directive Yes / No Effective Date File Name No Information Encounters Encounter Description Practice Location Reason(s) For Visit Diagnoses Date Provider Providers Copied on Encounter [facility] [address], [place], [id number] , [place] tel: [phone] [facility] [address] No Information 8 Mariangel Hendricks. [address] [place], [place], [id number], [place]. tel:[phone] [facility], [address] [place] [address], [id number] , tel: [phone] [facility] [address] No Information 8 Fidel Reyes. [address], [address], [place], [place], [id number]. [phone] Office/outpa tient visit,est, mod [facility], [address] [place] [address], [id number] , [place] tel: [phone] [facility] [address] f/u from hosp needs referal to gastro c/o having abd (chief complaint) pain and acid reflux (chief complaint) Chronic idiopathic constipationSleep disorderFatigue, unspecified typeGastroesophage al reflux disease without esophagitis 8 Maureen Montero. [address], [address], [place], [place], [id number]. [phone] Referring Provider: Eric Parra MD, [address], [place], [id number]. tel:[phone] Office/outpa tient visit,new, mod [facility], [address] [place] [address], [id number] , tel: [phone] [facility] [address] needs rx refills c/o upper abdominal pain (chief complaint) has not had a bowel movement in 13 days has tried (chief complaint) multiple meds to loosen stool (chief complaint) fatigue (chief complaint) Cardiac arrhythmia, unspecified cardiac arrhythmia typeCardiac defibrillator in placeAsthmatic bronchitis without complication, unspecified asthma severity, unspecified whether persistentGenerali zed abdominal painAnxiety disorder, unspecifiedType 2 diabetes mellitus with hyperglycemiaHisto ry of cervical cancerUnspecified osteoarthritis, unspecified siteNicotine dependence, unspecified, uncomplicated 8 Fidel Reyes. [address] [facility], [address], [place], [place], [id number]. tel:[phone] Family History Family Member Type Diagnosis Age At Onset Maternal grandmother Problem (finding) Parkinson's dis ease Father Problem (finding) Diabetes melli tus type 2 (Cause Of ) Mother Problem (finding) Rheumatoid arthritis Maternal grandmother Problem (finding) Alzheimer's dis ease Payers Payer name Insurance type Covered alliance party ID Authoriza tion(s) N Medicaid [facility] [id number] Medicaid [facility] [id number] Social History Type Description Quantity Date Captured Comments Sex Female Smoking Status No Information Chief Complaint And Reason For Visit No Information Plan Of Treatment Date Type Action Status Goal Influenza vaccine. Due on due Goal Td vaccine. Due on 18 due Goal Mammogram (Screening); Bilat eral. Due on due Goal Diabetes screening. Due on due Goal Tdap. Due on due Goal Pap/HPV testing. Due on due Goal Tobacco cessation counseling completed Goal Tobacco cessation counseling completed Goal Mammogram (Screening); Bilat eral. Due on due Goal Td vaccine. Due on 18 due Goal Influenza vaccine. Due on due Goal Diabetes screening. Due on J due Goal Tdap. Due on due Goal Pap/HPV testing. Due on due Goal Tobacco cessation counseling completed Referral Ordered: [facility] (related to Sleep disorder) ordered Referral Ordered: CHEST X-RAY Bilateral ordered Referral Referred To: [facility] Ordered: Referrals: [facility]. Location: [phone]. Evaluate and treat ordered History Of Present Illness Encounter Date Complaint History Of Prese nt Illness f/u from hosp needs referal to gastro c/o having abd Pt has chronic / severe constipation and she was admitted the hospital for tx on 12/08. She had one bowel on December 13 until today. Bloated, no energy, generalize pain. US of abdominal was done at the hospital. US results show no obstruction/perforation. pain and acid reflux Hx of GERD. Currently taking Pantoprazole fatigue multiple meds to loosen stool needs rx refills c/o upper abdominal pain has not had a bowel movement in 13 days has tried needs rx refills c/o upper abdominal pain (comments) above; PMH DMII with 2 types of insulin; some type of arrythmia with defibrillator; PSH: Gallbladder, appi, hysterectomy for cervical CA age 27. SH: smoker. Psych: anxiety; FHx neg; no SAD D/O. Abd P 02/12Having cough with SOB X 2 days; no F/V; no hx asthma or HFA use Instructions Date Instruction Additional Infor keyla Continue with fahad medina tx of GERDRefer to GI for further evaluation. Related to Gastroesophageal reflux disease without esophagitis Pt was refered to se rebecca bush cover maker on December 08.Waiting for the lab works from the hospital.Schedule for Thursday for blood works and EKG/BVSAUE13 injection Related to Fatigue, unspecified type Refer to sleep study Related to Sleep disorder Refer to GI for colo nscopy.Advise to eat more fiber, drink a lot water 6-7 bottles/day, Exercise 45'/day 3X/Week,.Take Linzess QD before meal for constipationWaiting for US and blood work from the hospital. 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
--- OUTSIDE RECORDS SUMMARY | 2023-08-10 05:13 | XMS_ITS | Patient Health Record ---
Author Name Unknown Organization [email or web address] Address [address] [place], [place] [address] Care Team Providers Care Soldering Machine Feeder Name Role Phone Brodie Mix Primary Care Provider Unavaileleazar Sweeney MD, Ed Unavailable [phone] Yoselin Reyes Unavailable [phone] ALLERGIES Allergen (clinical drug ingredient) Drug/Non Drug [...] elsewhere classified (M46.1) Active confirmed Solitary sacroiliitis (285942529) Problem Spondylosis without myelopathy or radiculopathy, lumbar region (M47.816) Active confirmed Lumbosacral spondylosis without myelopathy (84028178) Problem continuous churn buttermaker (current) use of opiate analgesic (Z79.891) Active confirmed High risk drug monitoring status (649186554) Problem Type 1 diabetes mellitus with diabetic polyneuropathy (E10.42) Active confirmed Polyneuropathy due to diabetes mellitus type I (934008853) Problem Type 2 diabetes mellitus with diabetic neuropathy, unspecified (E11.40) Active confirmed Diabetic peripheral neuropathy associated with type 2 diabetes mellitus (3046505682029) Problem Other specified anxiety disorders (F41.8) Active confirmed Anxiety disorde r (791867405) Problem Other sleep disorders (G47.8) Active confirmed Sleep diso rder (70978002) Problem Other chronic pain (G89.29) Active confirmed Chronic pain (03733456) Problem Chronic pain syndrome (G89.4) Active confirmed Chronic figueroa n syndrome (414374127) Problem Pain in left hip (M25.552) Active confirmed Arthralgia of t he pelvic region and thigh (914809364) Problem Intervertebral disc disorders with radiculopathy, lumbar region (M51.16) Active confirmed Radiculopathy d ue to lumbar intervertebral disc disorder (034370988914876) Problem Other penitentiary (current) drug therapy (Z79.899) Active confirmed Long-term current use of drug therapy (725853239) Problem Myalgia, other site (M79.18) Active confirmed Muscle pain (49730864) Problem Vertebrogenic low back pain (M54.51) Active confirmed Pain in lumbar spine (035130172) VITAL SIGNS Temperature 97.8 degrees Fahrenheit 03/24/2023 Oximetry 97 % 03/24/2023 Height 67 in 03/24/2023 Weight 214 lbs 03/24/2023 BMI 33.51 kg/m2 03/24/2023 Encounters Encounter Location Date Provider Diagnosis [facility] [place] [address] [place], [place] [id number] 08/18/2022 Ed Sweeney [facility] [place] [place] [address] [place], [place] [id number] 09/10/2022 Ed Sweeney Vertebrogenic low ba ck pain M54.51 ; Myalgia, other site M79.18 ; Pain in left hip M25.552 ; Spondylosis without myelopathy or radiculopathy, lumbar region M47.816 ; Sacroiliitis, not elsewhere classified M46.1 ; Intervertebral disc disorders with radiculopathy, lumbar region M51.16 ; Other sleep disorders G47.8 and continuous churn buttermaker (current) use of opiate analgesic Z79.891 [facility], [facility] [address] [place], [place] [id number] 12/10/2022 Yoselin Sen Other chronic pain G89.29 ; Type 2 diabetes mellitus with diabetic neuropathy, unspecified E11.40 ; Vertebrogenic low back pain M54.51 ; Sacroiliitis, not elsewhere classified M46.1 and jail (current) use of opiate analgesic Z79.891 [facility], [facility] [address] [place], [place] [id number] 12/23/2022 Ed Sweeney Sacroiliitis, not elsewhere classified M46.1 ; Other specified anxiety disorders F41.8 ; Other chronic pain G89.29 ; Type 2 diabetes mellitus with diabetic neuropathy, unspecified E11.40 and Vertebrogenic low back pain M54.51 [facility] [address] [place] [address] 02/02/2023 Ed Sweeney Sacroiliitis, not elsewhere classified M46.1 and Other specified anxiety disorders F41.8 [facility] [address] [place], [place] [id number] 02/04/2023 Ed Sweeney Sacroiliitis, not elsewhere classified M46.1 and Other specified anxiety disorders F41.8 [facility] [address] [place] [address] 02/09/2023 Ed Sweeney Spondylosis without myelopathy or radiculopathy, lumbar region M47.816 ; Sacroiliitis, not elsewhere classified M46.1 and Other specified anxiety disorders F41.8 [facility], [facility] [address] [place], [place] [id number] 02/23/2023 Ed Sweeney [facility], [facility] [address] [place], [place] [id number] 03/24/2023 Yoselin Sen Other chronic pain G89.29 ; Vertebrogenic low back pain M54.51 ; Sacroiliitis, not elsewhere classified M46.1 and Type 2 diabetes mellitus with diabetic neuropathy, unspecified E11.40 ASSESSMENTS Encounter Date Diagnosis Assessment Notes Treatment Notes Treatment Clinical Notes 09/10/2022 Myalgia, other site (ICD-10 - M79.18) [...] (ICD-10 - E11.40) Patient reports that her speeder operator recommends a change from gabapentin to duloxetine [...] - E11.40) Patient had reported that her speeder operator recommended a change from gabapentin to duloxetine or pregabalin 02/09/2023 Other specified anxiety disorders (ICD-10 - F41.8) Plan monitored anesthesia care 03/24/2023 Type 2 diabetes mellitus with diabetic neuropathy, unspecified (ICD-10 - E11.40) Patient reports benefit with use of pregabalin for neuropathy symptoms. Plan to continue with dose titration 12/23/2022 Vertebrogenic low back pain (ICD-10 - M54.51) Chronic axial lumbosacral spine pain 12/10/2022 jail (current) use of opiate analgesic (ICD-10 - [...] Patient has not had a sleep study. [place] Sleepiness Scale: 5. Have strongly recommended a [...] would be at patient's increased risk 09/10/2022 continuous churn buttermaker (current) use of opiate analgesic (ICD-10 - [...] Name:Ed Dupont son, 09/16/2023 10:30:00 AM, [address], [place], [place], [id number], Insurance Providers Payer Name Payer Address Payer Phone Subscriber Number Group Number Insured Name Patient Relationship to Insured Coverage Start Date Coverage End Date [place] [employer] [address] [place] [address] [phone] [id number] Paula Goodwin Self - patient is the insured MEDICAL (GENERAL) HISTORY Medical History History ICD Code Chronic pain Low back pain Lumbar disc disease and spondylosis Sacroiliitis Muscle spasms Neuropathy Diabetes mellitus with diabetic neuropat hy Chronic kidney disease stage 3 Depression Dysrhytmia, defibrillator implantation i n 2009 [address]iac workup performed by Dr. Levy at [facility] 04/29/21 Infected left finger and asy mptomatic bladder inection (led to hopitalization) Left Achilles' tendon tear Tobacco use, possible COPD Obesity, mild (history of moderate obesi ty) Sleep disorder Surgical History Surgery Date(Month/Year) Appendectomy, 1988 Cholecystectomy, 1990 Hysterectomy, 2002 Defibrillator implantation, performed in [place], [place], 2009 Hospitalization History Reason Date(Month/Year) Sepsis, [facility], 11/23/21-11/28/21
[2023-08-10 06:13] LABS: Add Urine Microscopic? NO; Charge for UA Resulting for Rev
[2023-08-10 06:16] LABS: Bilirubin Urine Neg (Negative); Blood Urine Neg (Negative); Glucose Urine UA 4+ (Normal); Ketones Urine Negative (Negative); Leukocyte Esterase Urine Negative (Negative); Nitrate Urine Negative (Negative); Protein Urine Neg (Negative); Specific Gravity, Urine 1.015 (1.005-1.030); Urine Appearance Clear (CLEAR); Urine Color Yellow (Yellow); Urobilinogen Urine Norm (Negative); pH Urine 5 (5-7)
[2023-08-10 06:26] LABS: Glucose Point of Care 310 mg/dL (70-110)
[2023-08-10] MEDS: sodium chloride 0.9% 1,000 ML 30 ML IV (06:26)
[2023-08-10] MEDS: ondansetron 2 mg/ML SDV 2 mL 4 MG IVP (06:27)
--- NOTE | 2023-08-10 06:28 | W.PM.OPSUD ---
Surgery/Procedure H&P Update DATE OF PROCEDURE: August 10, 2023 DATE H&P PERFORMED: 07/28/23 H&P UPDATE INFORMATION: I have reviewed H&P completed within last 30 days, I have examined patient prior to procedure and No changes to prior documentation PREOP DIAGNOSIS: Defibrillator generator end of service PLANNED PROCEDURE: Operation Date: 08/10/23 07:00 Proposed Procedures p Defibillator Generator Exchange [id number],Z45.02,I50.43(Not Applicable) - Steve Hess MD
[2023-08-10 06:36] LABS: Basophils # 0.1 10^3/uL (0.0-0.1); Basophils % 0.7 %; Eosinophils # 0.3 10^3/uL (0.0-0.8); Eosinophils % 2.6 %; Hematocrit 36.8 % (36-47); Lymphocytes # 2.9 10^3/uL (0.8-4.8); Lymphocytes % 29.8 %; Mean Corpuscular Hemoglobin 30.9 pg (27-33); Mean Corpuscular Volume 91.1 fl (85-98); Mean Platelet Volume 10.5 fL (7.4-10.4); Monocytes # 0.5 10^3/uL (0.2-0.9); Monocytes % 4.8 %; Neutrophils # 5.82 10^3/uL (1.8-7.7); Neutrophils % 60.6 %; Nucleated Red Blood Cells % 0 %; Platelet Count 194 10^3/cmm (157-399); Red Blood Count 4.04 10^6/uL (3.85-5.65)
--- NOTE | 2023-08-10 06:43 | P.ANESASSM_ITS ---
Pre-Anesthetic Assessment Height/Weight: Height 1.7 m Weight 102.058 kg Temp Pulse Resp BP Pulse Ox O2 Del Method 97.4 F L 83 18 128/73 95 Room Air 08/10/23 06:02 08/10/23 06:02 08/10/23 06:02 08/10/23 06:02 08/10/23 06:02 08/10/23 06:06 Preop Diagnosis: Defibrillator generator end of service Operation Date: 08/10/23 07:00 Proposed Procedures p Defibillator Generator Exchange 20021,Z45.02,I50.43(Not Applicable) - Steve Hess MD Familial anesthetic complications: None Was Beta Aramis taken within 24 hours: N/A Was Clonidine taken within 24 hours: N/A Last intake: Intake Last Liquid Date 08/09/23 Last Liquid Time 21:00 Last Solid Date 08/09/23 Last Solid Time 16:00 Social Tobacco and No alcohol Exam alert, oriented x 3, clear to auscultation bilaterally and regular rate & rhythm Airway Mallampati: Class III Dentition: false CV/HEM Congestive Heart Failure EF 50% on last echo Chronic Renal Insufficiency GI Gastroesophageal Reflux Disease Metabolic Diabetes Mellitus Anesthetic Plan ASA status: 4 Anesthesia: Choice Risk of > 500 ml blood loss (7ml/kg in children): No Medications/Allergies Home Medications Medication Instructions Recorded Confirmed Last Taken Type hydroxyzine HCl 25 mg tablet 25 mg PO DAILY 11/14/19 08/07/23 08/09/23 History pen needle, diabetic 31 gauge x #100 ea 03/12/21 07/28/23 Unknown Rx 07/09 (Comfort EZ Pen [place]) ergocalciferol (vitamin D2) 1,250 See Rx Instructions .Route .COMPLEX 11/03/21 08/07/23 08/02/23 History mcg (50,000 unit) capsule (Vitamin D2) blood-glucose meter,continuous #1 ea 07/25/22 07/28/23 Unknown Rx (Dexcom G6 Personnel Analyst) fluoxetine 40 mg capsule 40 mg PO DAILY 08/21/22 08/07/23 08/09/23 History sacubitril 24 mg-valsartan 26 mg 1 tab PO BID #180 tabs 09/29/22 08/07/23 08/05/23 Rx tablet (Entresto) Heel Lift #1 ea 01/13/23 07/28/23 Unknown Rx cam boot to the left ankle #1 ea 02/25/23 07/28/23 Unknown Rx furosemide 40 mg tablet 20 mg PO DAILY edema 04/17/23 08/07/23 08/09/23 History insulin glargine 100 unit/mL (3 40 unit (0.4 mL) SUBCUT BID 90 05/08/23 08/07/23 08/09/23 Rx mL) subcutaneous pen (Lantus days #72 mL Solostar U-100 Insulin) insulin pump cart,cont inf,BT #10 ea 05/08/23 07/28/23 Unknown Rx (Omnipod Dash Pods (Gen 4) subcutaneous cartridge) insulin pump cartridge,automated #1 ea 05/11/23 07/28/23 Unknown Rx dose,BT with controller subcutaneous (Omnipod 5 G6 Intro Kit (Gen 5) subcutaneous cartridge with controller) atorvastatin 40 mg tablet See Rx Instructions .Route 05/25/23 08/07/23 08/09/23 Rx .COMPLEX #30 tabs blood-glucose sensor (Dexcom G6 #3 ea 05/27/23 07/28/23 Unknown Rx Sensor device) blood-glucose transmitter (Dexcom #1 ea 05/27/23 07/28/23 Unknown Rx G6 Transmitter device) insulin lispro 100 unit/mL 160 unit (1.6 mL) continuous 06/08/23 08/07/23 08/09/23 Rx subcutaneous solution (Humalog subcutaneous infusion DAILY #50 mL U-100 Insulin) tirzepatide 5 mg/0.5 mL 5 mg (0.5 mL) SUBCUT Q7D 30 days 06/10/23 07/28/23 08/05/23 Rx subcutaneous pen injector #2 mL (Mounjaro) insulin pump cart,automated,BT #10 ea 07/03/23 07/28/23 Unknown Rx (Omnipod 5 G6 Pods (Gen 5) subcutaneous cartridge) omega-3 acid ethyl esters 1 gram 2 cap PO BID #60 caps 07/21/23 07/28/23 08/09/23 Rx capsule (Lovaza) pantoprazole 20 mg tablet,delayed 20 mg PO DAILY #90 tabs 08/03/23 08/07/23 08/09/23 Rx release fenofibrate 54 mg tablet See Rx Instructions .Route 08/04/23 08/07/23 08/09/23 Rx .COMPLEX #60 tabs Allergies Allergy/AdvReac Type Severity Reaction Status Date / Time metformin Allergy Severe ALGY-Anaphy Verified 08/07/23 12:30 laxis Current Medications Generic Name Dose Route Start Last Admin Trade Name Freq PRN Reason Stop Dose Admin Sodium Chloride 1,000 mls @ 30 mls/hr 08/10/23 05:45 08/10/23 06:26 Sodium Chloride 0.9% IV 08/11/23 05:44 30 mls/hr .Q24H BRANDON Administration Ondansetron HCl 4 mg 08/10/23 05:44 08/10/23 06:27 Ondansetron 2 Mg/Ml Sdv 2 Ml IVP 4 mg Q5M PRN Administration NAUSEA AND VOMITING PFSH Anesthesia Medical History Cardiac resynchronization therapy defibrillator (WRINGER MACHINE OPERATOR-D) in place CHF (congestive heart failure), NYHA class III Left bundle branch block Diabetes Hx of cervical cancer Surgical History H/O prior ablation treatment Hx of breast biopsy Hx of hysterectomy Hx of appendectomy Hx of cholecystectomy Family History Father Bleeding disorder CAD (coronary artery disease) Dementia Diabetes Hyperlipidemia Hypertension Lung disease Stroke Sister Cancer Grandmother Diabetes Denies family history of Clotting disorder Psychiatric illness Chronic kidney disease (CKD) Suicide Anesthesia complication Family history of premature coronary artery disease Social History Smoking and tobacco/nicotine status: current every day tobacco/nicotine user cigarettes Packs smoked per day: 0.5 Years cigarettes smoked: 30 Alcohol intake: never Substance/Drug Use: never Data Anesthesia 08/10/23 06:18 08/10/23 06:18 Short CBC 08/10/23 Range/Units 06:18 WBC 9.60 (3.29-11.43) 10^3/uL Hgb 12.50 (11.27-16.99) g/dL Hct 36.8 (36-47) % MCV 91.1 (85-98) fl Plt Count 194 (157-399) 10^3/cmm Neut % (Auto) 60.6 % Neut # (Auto) 5.82 (1.8-7.7) 10^3/uL Urine 08/10/23 Range/Units 06:10 Urine Color Yellow (Yellow) Urine Appearance Clear (CLEAR) Urine pH 5 (5-7) Ur Specific Ma[place] 1.015 (1.005-1.030) Urine Protein Neg (Negative) Urine Glucose (UA) 4+ H (Normal) Urine Ketones Negative (Negative) Urine Nitrate Negative (Negative) Urine Bilirubin Neg (Negative) Ur Leukocyte Esterase Negative (Negative) Cardiac Studies: 2 Echocardiogram 02/26/22 Echocardiogram Limited Views 11/04/21 Echocardiogram Ultrasound 12/15/19 Sestamibi Stress Test (Cardiology) 04/29
[2023-08-10 06:54] LABS: Anion Gap 15.6 (5-19); Blood Urea Nitrogen 40 mg/dL (6-20); Calcium 9.4 mg/dL (8.5-10.5); Carbon Dioxide 23 mmol/L (22-29); Chloride 102 mmol/L (98-107); Glomerular Filtration Rate 27.8 mL/min (90-130); Glucose 322 mg/dL (65-115); Osmolality Calculated 304 mOsm/kg (285-295); Potassium 4.6 mmol/L (3.5-5.1); Sodium 136 mmol/L (136-145)
[2023-08-10] MEDS: insulin regular-human 100 units/1 mL 10 UNIT IVP (07:06)
[2023-08-10] MEDS: ceFAZolin 2,000 MG in sodium chloride 0.9% (plus) 50 ML 100 MG IV (07:09)
[2023-08-10] MEDS: lidocaine 1% INJ 10 mL (per mL) 7 ML XX (08:09)
[2023-08-10] MEDS: ceFAZolin 1,000 mg SDV 1000 MG IRRIGATION (08:10)
--- NOTE | 2023-08-10 08:18 | PM.OP ---
Operative Report Date of procedure: August 10, 2023 Pre-op diagnosis: AICD generator at end of service Post-op diagnosis: same Procedure done: AICD generator exchange Implants: Medtronic AICD generator Specimens removed/disposition: St Akash generator removed Pathology: none sent Surgeon: Steve Hess MD Estimated blood loss (mL): 5 Complications: None Condition: stable Disposition: PACU Brief History: Ms. Goodwin is a 52-year-old female with a resynchronization AICD device in place with his current generator now at end of service. He was originally placed back in 2014 in [place] and has a [employer] system. We plan to upgrade to a Medtronic generator. All 3 leads have been interrogated and appear to be appropriately functioning. Details and risk of generator exchange were carefully discussed including potential for lead injury, infection requiring need to explant the entire device, pain, bleeding, and need for continued surveillance. She understands increased risks related to her diabetes mellitus. Because her Mounjaro most recent dosing was less than 1 week, plans will be for endotracheal intubation and general anesthesia for airway protection. She states understanding and is in agreement. Procedure: Ms. Goodwin was appropriately positioned and sterilely prepped and draped. Related to her use of mounjaro for diabetic control, it was elected to perform general anesthesia with endotracheal intubation for airway protection. 1% lidocaine was infiltrated through the prior insertion incision site. # 15 scalpel blade was used to incise the skin down to subcutaneous layer. Subsequently, using sharp and blunt dissection the pseudocapsule to the old generator was reached and opened with a scalpel blade. This area was then enhanced utilizing Metzenbaum scissors with care taken not to injure the pacing leads. Once the pocket was adequate opened, hemostats were utilized to deliver the old generator. Set screws were released and the leads were removed and inserted properly into the new generator with set screws then secured. The old generator was removed from the field. The incision was irrigated with antibiotic solution. Hemostasis was confirmed. The new generator was placed back into the old subcutaneous pocket. The wound was then closed in 2 layers of 3-0 Vicryl suture. Skin was closed in a subcuticular manner with 4-0 undyed Vicryl suture. A 2 layer pressure dressing was then applied. The entire system was interrogated and appropriate parameters obtained. She tolerated procedure well and was taken to the recovery room in stable condition. I did intellectual property counsel with her family at the completion of the procedure.
[2023-08-10 09:17] LABS: Glucose Point of Care 184 mg/dL (70-110)
--- NOTE | 2023-08-10 09:35 | ANE.PACU2 ---
Inpatient post-anesthesia follow up: Airway intact: Yes Vital signs: Temperature 97 F Pulse Rate 74 Respiratory Rate 18 Blood Pressure 125/68 Pulse Oximetry 97 Oxygen Delivery Me thod Room Air Oxygen Flow Rate 6 Fraction of Inspir ed Oxygen Hydration adequate: Yes Nausea and vomiting: No Pain level: 1 Mental status: Baseline
== END 2023-08-10 09:34 | disposition home or self-care (01) ==
PROVIDERS: PCP Family Medicine; Visit Provider Thoracic Surgery (Cardiothoracic Vascular Surgery)
PROC: 0JPT0PZ Removal of Cardiac Rhythm Related Device from Trunk Subcutaneous Tissue and Fascia, Open Approach (ICD-10-PCS; CPT 33262; principal; 2023-08-10 07:00)
DX: T82.897A Other specified complication of cardiac prosthetic devices, implants and grafts, initial encounter (principal); I50.9 Heart failure, unspecified; K21.9 Gastro-esophageal reflux disease without esophagitis; E11.9 Type 2 diabetes mellitus without complications; Z85.41 Personal history of malignant neoplasm of cervix uteri; F17.210 Nicotine dependence, cigarettes, uncomplicated; Y82.8 Other medical devices associated with adverse incidents
CPT/HCPCS: 33262; 36415; 36416; 80048; 81003; 82962; 85025; C1722; J0330; J0690; J1815; J2250; J2405; J2704; J2710; J3010; J3490; J7030

== ENCOUNTER 2023-08-19 12:41 | Outpatient (CLI) | payer MEDICAID, SELFPAY ==
--- NOTE | 2023-08-19 12:46 | US_ITS ---
WS: [id number] RENAL ULTRASOUND HISTORY: STAGE 3B CHRONIC KIDNEY DZ COMPARISON: None available. TECHNIQUE: 2-D and color Doppler imaging of the kidney submitted. Right kidney: 11.6 cm x 4.4 cm x 5.1 cm. Cortex: 0.9 cm Normal echogenicity with no hydronephrosis or mass. Left kidney: 11.2 cm x 3.4 cm x 4.9 cm. Cortex: 0.7 cm Normal echogenicity with no hydronephrosis or mass. Aorta: Normal. Urinary Bladder: Normal distention. IMPRESSION: 1. No hydronephrosis or renal mass. 2. Very mild bilateral cortical thinning. Overall size of the kidneys is normal.
== END 2023-08-19 12:42 | disposition home or self-care (01) ==
LOC: RAD 12:42
PROVIDERS: PCP Family Medicine; Visit Provider Nurse Practitioner Family
DX: N18.32 Chronic kidney disease, stage 3b (principal)
CPT/HCPCS: 76770

== ENCOUNTER → 2023-09-10 09:44 | Outpatient (BNVA) | payer MEDICARE, MEDICAID, SELFPAY | PROVIDERS: PCP Family Medicine; Visit Provider Internal Medicine | DX: E10.59 Type 1 diabetes mellitus with other circulatory complications; E10.42 Type 1 diabetes mellitus with diabetic polyneuropathy; Z79.4 Long term (current) use of insulin; E10.22 Type 1 diabetes mellitus with diabetic chronic kidney disease; N18.30 Chronic kidney disease, stage 3 unspecified | CPT/HCPCS: 99214 ==

== ENCOUNTER 2023-10-16 11:33 | Outpatient (CLI) | payer MEDICARE, MEDICAID, SELFPAY ==
--- NOTE | 2023-10-16 11:52 | USCV_ITS ---
Paula Goodwin Age: 52 Gender: F : 1970 Exam Date: 10/16/2023 12:07 Ordering Phys: Maranda Greer NP Technologist: CT Exam Location: [facility] [place]_ Indication: left leg pain PROCEDURES: Venous duplex imaging was performed in only the left lower extremity. On the left side, the common femoral, superficial femoral, profunda femoral, popliteal, posterior tibial, greater saphenous veins, and the peroneal trunk were identified and interrogated in the standard fashion. FINDINGS: Normal 2-D Doppler and augmentation and compressibility throughout the lower extremity venous structures. Additional imaging through the proximal calf veins also reveals no thrombus. Limited evaluation of the greater saphenous vein is patent with no thrombus. Complex cystic mass with low level echos and no vascularity measuring 3.9 cm in the left popliteal fossa. CONCLUSIONS No DVT left lower extremity. Left popliteal fossa Rios's cyst. Dr. Lisa Hernandez DO (Electronically Signed) Final Date: 16 October 2023 12:46 S
== END 2023-10-16 11:34 | disposition home or self-care (01) ==
LOC: RAD 11:33
PROVIDERS: PCP Family Medicine; Visit Provider Nurse Practitioner
DX: I82.402 Acute embolism and thrombosis of unspecified deep veins of left lower extremity (principal); M79.605 Pain in left leg; M71.22 Synovial cyst of popliteal space [Baker], left knee
CPT/HCPCS: 93971

== ENCOUNTER → 2023-12-14 09:27 | Outpatient (BNVA) | payer MEDICARE, MEDICAID, SELFPAY | PROVIDERS: PCP Family Medicine; Visit Provider Internal Medicine | DX: E10.59 Type 1 diabetes mellitus with other circulatory complications (principal); E10.42 Type 1 diabetes mellitus with diabetic polyneuropathy; Z79.4 Long term (current) use of insulin; E10.22 Type 1 diabetes mellitus with diabetic chronic kidney disease; N18.30 Chronic kidney disease, stage 3 unspecified; Z79.85 Long-term (current) use of injectable non-insulin antidiabetic drugs | CPT/HCPCS: 99214 ==

== ENCOUNTER → 2024-02-15 08:47 | Outpatient (BNVA) | payer MEDICAID, SELFPAY | PROVIDERS: PCP Family Medicine; Visit Provider Nurse Practitioner Family | DX: I11.0 Hypertensive heart disease with heart failure (principal); I50.43 Acute on chronic combined systolic (congestive) and diastolic (congestive) heart failure; Z95.810 Presence of automatic (implantable) cardiac defibrillator; F17.210 Nicotine dependence, cigarettes, uncomplicated | CPT/HCPCS: 99214 ==

== ENCOUNTER → 2024-06-15 09:17 | Outpatient (BNVA) | payer MEDICARE, MEDICAID, SELFPAY | PROVIDERS: PCP Family Medicine; Visit Provider Internal Medicine | DX: E10.59 Type 1 diabetes mellitus with other circulatory complications (principal); Z79.4 Long term (current) use of insulin; E10.22 Type 1 diabetes mellitus with diabetic chronic kidney disease; E10.42 Type 1 diabetes mellitus with diabetic polyneuropathy | CPT/HCPCS: 99214 ==

== ENCOUNTER → 2024-07-05 15:56 | Outpatient (BNVA) | payer MEDICARE, MEDICAID, SELFPAY | PROVIDERS: PCP Family Medicine | DX: Z45.02 Encounter for adjustment and management of automatic implantable cardiac defibrillator (principal) | CPT/HCPCS: 93296 ==

== ENCOUNTER → 2024-09-14 10:04 | Outpatient (BNVA) | payer MEDICARE, MEDICAID, SELFPAY | PROVIDERS: PCP Family Medicine; Visit Provider Internal Medicine | DX: E10.59 Type 1 diabetes mellitus with other circulatory complications (principal); E10.42 Type 1 diabetes mellitus with diabetic polyneuropathy; Z79.4 Long term (current) use of insulin; E10.22 Type 1 diabetes mellitus with diabetic chronic kidney disease | CPT/HCPCS: 99214 ==

== ENCOUNTER → 2025-03-15 09:56 | Outpatient (BNVA) | payer MEDICARE, MEDICAID, SELFPAY | PROVIDERS: PCP Family Medicine; Visit Provider Internal Medicine | DX: E10.42 Type 1 diabetes mellitus with diabetic polyneuropathy (principal); E10.22 Type 1 diabetes mellitus with diabetic chronic kidney disease; N18.30 Chronic kidney disease, stage 3 unspecified; Z79.4 Long term (current) use of insulin; Z98.890 Other specified postprocedural states | CPT/HCPCS: 99214 ==